=== PATIENT | male | born 1960 | race Caucasian/White ===

== ENCOUNTER 2024-02-03 03:49 | Inpatient (IN) | payer OTHER ==
[~2024-02-03] VITALS: Ht 177.8 cm; Wt 90.3 kg
[2024-02-03 04:11] VITALS: BP_SYST 124; PULSE 97; RESP 35; TEMP 98.9; O2SAT 96
[2024-02-03] MEDS: NS 1000 ML IV.SOLN IV ONE (04:30)
[2024-02-03 04:44] LABS: BASOPHILS % (AUTO) 0.1 % (0.0-2.0); EOSINOPHILS % (AUTO) 0.1 % (0.0-4.0); HEMATOCRIT 35.8 % (36-54); HEMOGLOBIN 11.9 g/dL (14.0-18.0); LYMPHOCYTES # (AUTO) 1.1 K/uL (1.0-5.5); LYMPHOCYTES % (AUTO) 7.1 % (20.5-51.5); MEAN CORPUSCULAR HEMOGLOBIN 28 pg (27-31); MEAN CORPUSCULAR HGB CONC 33 % (32-36); MEAN CORPUSCULAR VOLUME 85 fL (79.0-98.0); MONOCYTES # (AUTO) 0.9 K/uL (0.0-1.0); MONOCYTES % (AUTO) 5.6 % (1.7-9.3); NEUTROPHILS % (AUTO) 87.1 % (40.0-70.0); PLATELET COUNT (AUTO) 250 K/uL (130-430); RED BLOOD CELL COUNT(AUTO) 4.23 MIL/uL (4.2-6.2); RED CELL DISTRIBUTION WIDTH 14.6 % (9.0-15.0)
[2024-02-03 04:53] LABS: INR 1.1 (0.80-1.20); PROTHROMBIN TIME 10.9 SECS (9.5-12.5)
[2024-02-03] MEDS ORDERED: CLOP75TA32 PO (04:53)
[2024-02-03] MEDS ORDERED: FER300L PO (04:53)
[2024-02-03] MEDS ORDERED: ESCI10TA PO (04:53)
[2024-02-03] MEDS ORDERED: PANT20TA2 PO (04:53)
[2024-02-03] MEDS ORDERED: LACT10SO7 PO (04:53)
[2024-02-03] MEDS ORDERED: TAMS-11 PO (04:53)
[2024-02-03] MEDS ORDERED: LIP40 PO (04:53)
[2024-02-03] MEDS ORDERED: OXYIR5 PO (04:53)
[2024-02-03] MEDS ORDERED: BUPR1PAT2 TP (04:53)
[2024-02-03] MEDS ORDERED: OXYB-31 PO (04:53)
[2024-02-03] MEDS ORDERED: ASCO500T20 PO (04:53)
[2024-02-03] MEDS ORDERED: BACL20TA PO (04:53)
[2024-02-03] MEDS ORDERED: DOCU250C14 PO (04:53)
[2024-02-03] MEDS ORDERED: VITD2000 PO (04:53)
[2024-02-03] MEDS ORDERED: NALO4SPR NS (04:53)
[2024-02-03] MEDS ORDERED: [UNRECOGNIZED DRUG - CODE] SUBCUT (04:53)
[2024-02-03] MEDS ORDERED: IPRA4AER INH (04:53)
[2024-02-03] MEDS ORDERED: MULT-1117 PO (04:53)
[2024-02-03] MEDS ORDERED: ACET325T53 PO (04:53)
[2024-02-03] MEDS ORDERED: GABA-529 PO (04:53)
[2024-02-03] MEDS ORDERED: METO-290 PO (04:53)
[2024-02-03] MEDS ORDERED: FURO-150 PO (04:53)
[2024-02-03 05:13] LABS: ALANINE AMINOTRANSFERASE 47 U/L (12-78); ALBUMIN 3.8 g/dL (3.4-4.8); ANION GAP 18 (5-15); ASPARTATE AMINOTRANSFERASE 33 U/L (10-37); BILIRUBIN,DIRECT 0.2 mg/dL (0.0-0.3); CALCIUM 9.9 mg/dL (8.4-11.0); CARBON DIOXIDE 18 mmol/L (23-29); CHLORIDE 102 mmol/L (98-107); CREATININE 1.01 mg/dL (0.55-1.30); GFR AFRICAN AMERICAN 97 mL/min (>90); GLUCOSE 246 mg/dL (74-106); POTASSIUM 4.9 mmol/L (3.5-5.1); SODIUM SERUM 138 mmol/L (136-145); TOTAL BILIRUBIN 0.5 mg/dL (0.0-1.0); TOTAL PROTEIN, SERUM 9.9 g/dL (6.4-8.3); UREA NITROGEN, BLOOD 40 mg/dL (8-21)
[2024-02-03 05:14] LABS: GFR NON AFRICAN-AMERICAN 80 mL/min (>90)
[2024-02-03] MEDS ORDERED: ONDANSETRON HCL 4 MG/2 ML VIAL ONE (05:26)
[2024-02-03] MEDS: ONDANSETRON HCL 4 MG/2 ML VIAL IVP ONE (05:28)
[2024-02-03] MEDS ORDERED: PIPERACILLIN/TAZO 4.5GM/DEX-IS 100 ML IV SCH (07:15)
[2024-02-03] MEDS: D5/0.45 NS 1,000 ML IV SCH (08:30)
[2024-02-03] MEDS ORDERED: PIPERACILLIN/TAZOBACTAM 4.5 GM/VIAL (ZOSYN) IV ONE (08:36)
[2024-02-03] MEDS: PIPERACILLIN/TAZO 4.5 GM in D5W 100 ML IV ONE (08:48)
[2024-02-03] MEDS: VANCOMYCIN HCL 1,000 MG in NS 250 ML IV SCH (11:38)
[2024-02-03 11:40] LABS: BILIRUBIN,URINE NEGATIVE (NEGATIVE); BLOOD, URINE 1+ (NEGATIVE); CLARITY/URINE CLOUDY (CLEAR); COLOR,URINE YELLOW (YELLOW); GLUCOSE,URINE NEGATIVE (NEGATIVE); KETONES,URINE TRACE (NEGATIVE); LEUKOCYTE ESTERASE ,URINE 3+ (NEGATIVE); NITRITE, URINE NEGATIVE (NEGATIVE); PROTEIN URINE TRACE (NEGATIVE); UROBILINOGEN,URINE 0.2 (0.2-1.0)
[2024-02-03 11:46] LABS: BACTERIA,URINE MANY /HPF (None Seen); WBC,URINE 20-50 /HPF (0-3)
[2024-02-03 11:47] LABS: MUCUS,URINE 1+ /LPF (None Seen)
[2024-02-03] MEDS ORDERED: D5W 1,000 ML IV PRN (12:00)
[2024-02-03] MEDS ORDERED: GLUCOSE (DEXTROSE) ORAL GEL -Adults PO PRN (12:00)
[2024-02-03] MEDS ORDERED: DEXTROSE 50% JECT 50 ML DISP.SYRIN IVP PRN (12:00)
[2024-02-03] MEDS: PANTOPRAZOLE SODIUM 80 MG in NS 100 ML IVP ONE (13:00)
[2024-02-03] MEDS ORDERED: PIPERACILLIN/TAZO 4.5 GM in D5W 100 ML IV SCH (14:00)
[2024-02-03] MEDS: PANTOPRAZOLE SODIUM 40 MG in NS 50 ML IV SCH (14:00)
[2024-02-03] MEDS ORDERED: DIATR MEGLU/DIATRIZ SOD 30 ML SOLUTION PO ONE (14:36)
[2024-02-03] MEDS ORDERED: PANTOPRAZOLE SODIUM 40 MG/VIAL (PROTONIX) ONE (15:40)
[2024-02-03] MEDS: PIPERACILLIN/TAZO 3.375 GM in D5W 50 ML IV SCH (21:35)
[2024-02-03 22:35] VITALS: BP_SYST 118; PULSE 63; RESP 18; TEMP 97; O2SAT 96
[2024-02-03 22:37] VITALS: BP_SYST 118; PULSE 62; RESP 18; TEMP 97.2
[2024-02-03 22:45] VITALS: O2SAT 96
[2024-02-03 23:58] VITALS: PULSE 62; O2SAT 98
[2024-02-04 00:07] VITALS: BP_SYST 124; PULSE 58; RESP 16; TEMP 98.1; O2SAT 97
[2024-02-04] MEDS: VANCOMYCIN HCL 1000 MG/VIAL IV ONE (01:09)
[2024-02-04 05:34] LABS: BASOPHILS % (AUTO) 0.1 % (0.0-2.0); EOSINOPHILS % (AUTO) 0.2 % (0.0-4.0); HEMATOCRIT 27.7 % (36-54); HEMOGLOBIN 9.1 g/dL (14.0-18.0); LYMPHOCYTES # (AUTO) 1.7 K/uL (1.0-5.5); LYMPHOCYTES % (AUTO) 13.2 % (20.5-51.5); MEAN CORPUSCULAR HEMOGLOBIN 28 pg (27-31); MEAN CORPUSCULAR HGB CONC 33 % (32-36); MEAN CORPUSCULAR VOLUME 85 fL (79.0-98.0); MONOCYTES # (AUTO) 0.8 K/uL (0.0-1.0); MONOCYTES % (AUTO) 6.6 % (1.7-9.3); NEUTROPHILS # (AUTO) 10.2 K/uL (1.8-7.7); NEUTROPHILS % (AUTO) 79.9 % (40.0-70.0); PLATELET COUNT (AUTO) 175 K/uL (130-430); RED BLOOD CELL COUNT(AUTO) 3.26 MIL/uL (4.2-6.2); RED CELL DISTRIBUTION WIDTH 14.4 % (9.0-15.0); WHITE BLOOD COUNT (AUTO) 12.7 K/uL (4.8-10.8)
[2024-02-04 05:41] LABS: INR 1.1 (0.80-1.20); PROTHROMBIN TIME 11.7 SECS (9.5-12.5)
[2024-02-04 06:08] LABS: CREATININE 0.83 mg/dL (0.55-1.30); PHOSPHORUS 3.3 mg/dL (2.7-4.5); POTASSIUM 3.7 mmol/L (3.5-5.1); THYROID STIMULATING HORMONE 1.48 uIu/mL (0.34-4.82); TOTAL BILIRUBIN 0.5 mg/dL (0.0-1.0); TOTAL PROTEIN, SERUM 8.1 g/dL (6.4-8.3)
[2024-02-04] MEDS: PANTOPRAZOLE SODIUM 40 MG/VIAL (PROTONIX) ONE (06:12)
[2024-02-04 08:00] VITALS: BP_SYST 121; PULSE 57; RESP 16; TEMP 97.6; O2SAT 97
[2024-02-04] MEDS: fentaNYL CITRATE/PF 100 MCG/2 ML AMP ONE (09:39)
[2024-02-04] MEDS: MIDAZOLAM HCL 5 MG/5 ML VIAL ONE (09:39)
[2024-02-04 11:40] VITALS: BP_SYST 116; PULSE 51; RESP 17; TEMP 97.1; O2SAT 96
[2024-02-04 16:40] VITALS: BP_SYST 119; PULSE 56; RESP 16; TEMP 98; O2SAT 95
[2024-02-04] MEDS: MUPIROCIN 1 GM OIN.PF.APP NS ONE (17:14)
[2024-02-04] MEDS: OXYCODONE/ACETAMINOPHEN 5-325 TABLET PO ONE (19:30)
[2024-02-04 20:00] VITALS: BP_SYST 133; PULSE 62; RESP 18; TEMP 97.7; O2SAT 98
[2024-02-04] MEDS: PANTOPRAZOLE SODIUM 40 MG/VIAL (PROTONIX) IVP SCH (21:03)
[2024-02-04] MEDS: MUPIROCIN 1 GM OIN.PF.APP NS SCH (21:15)
[2024-02-05] VITALS: BP_SYST 132; PULSE 58; RESP 17; TEMP 97.8; O2SAT 97
[2024-02-05 04:01] LABS: BASOPHILS % (AUTO) 0.2 % (0.0-2.0); EOSINOPHILS # (AUTO) 0.2 K/uL (0.0-0.4); HEMATOCRIT 27.4 % (36-54); HEMOGLOBIN 9.2 g/dL (14.0-18.0); LYMPHOCYTES # (AUTO) 2.5 K/uL (1.0-5.5); LYMPHOCYTES % (AUTO) 26.2 % (20.5-51.5); MEAN CORPUSCULAR HEMOGLOBIN 28 pg (27-31); MEAN CORPUSCULAR HGB CONC 34 % (32-36); MEAN CORPUSCULAR VOLUME 85 fL (79.0-98.0); MONOCYTES # (AUTO) 0.8 K/uL (0.0-1.0); MONOCYTES % (AUTO) 8.2 % (1.7-9.3); NEUTROPHILS # (AUTO) 6.2 K/uL (1.8-7.7); NEUTROPHILS % (AUTO) 63.4 % (40.0-70.0); PLATELET COUNT (AUTO) 182 K/uL (130-430); RED BLOOD CELL COUNT(AUTO) 3.24 MIL/uL (4.2-6.2); RED CELL DISTRIBUTION WIDTH 14.8 % (9.0-15.0); WHITE BLOOD COUNT (AUTO) 9.7 K/uL (4.8-10.8)
[2024-02-05 04:21] LABS: ALBUMIN 2.9 g/dL (3.4-4.8); CALCIUM 8.9 mg/dL (8.4-11.0); CREATININE 0.6 mg/dL (0.55-1.30); POTASSIUM 3.3 mmol/L (3.5-5.1); TOTAL BILIRUBIN 0.4 mg/dL (0.0-1.0); TOTAL PROTEIN, SERUM 7.9 g/dL (6.4-8.3)
[2024-02-05 07:00] VITALS: O2SAT 97
[2024-02-05 08:00] VITALS: BP_SYST 131; PULSE 63; RESP 18; TEMP 96.7; O2SAT 99
[2024-02-05] MEDS ORDERED: GASTROGRAFIN 120 ML ONE (10:11)
[2024-02-05 11:02] VITALS: BP_SYST 139; PULSE 71; RESP 17; TEMP 98.5; O2SAT 97
[2024-02-05 16:25] VITALS: BP_SYST 149; PULSE 69; RESP 16; TEMP 97.7; O2SAT 97
[2024-02-05] MEDS: POTASSIUM CHLORIDE 40 MEQ in D5W 250 ML IV ONE (17:58)
[2024-02-05 20:00] VITALS: BP_SYST 140; PULSE 65; RESP 20; TEMP 98.2; O2SAT 98
[2024-02-06 00:49] VITALS: BP_SYST 138; PULSE 63; RESP 16; TEMP 98.2; O2SAT 97
[2024-02-06] MEDS: VANCOMYCIN HCL 1,000 MG in NS 250 ML IV SCH (02:12)
[2024-02-06 04:41] LABS: BASOPHILS % (AUTO) 0.3 % (0.0-2.0); EOSINOPHILS # (AUTO) 0.2 K/uL (0.0-0.4); EOSINOPHILS % (AUTO) 2.2 % (0.0-4.0); HEMOGLOBIN 8.6 g/dL (14.0-18.0); LYMPHOCYTES # (AUTO) 3.2 K/uL (1.0-5.5); LYMPHOCYTES % (AUTO) 30.7 % (20.5-51.5); MEAN CORPUSCULAR HEMOGLOBIN 28 pg (27-31); MEAN CORPUSCULAR HGB CONC 33 % (32-36); MEAN CORPUSCULAR VOLUME 85 fL (79.0-98.0); MONOCYTES # (AUTO) 1.2 K/uL (0.0-1.0); MONOCYTES % (AUTO) 11.3 % (1.7-9.3); NEUTROPHILS # (AUTO) 5.8 K/uL (1.8-7.7); NEUTROPHILS % (AUTO) 55.5 % (40.0-70.0); PLATELET COUNT (AUTO) 173 K/uL (130-430); RED BLOOD CELL COUNT(AUTO) 3.05 MIL/uL (4.2-6.2); RED CELL DISTRIBUTION WIDTH 14.3 % (9.0-15.0); WHITE BLOOD COUNT (AUTO) 10.4 K/uL (4.8-10.8)
[2024-02-06 05:21] LABS: CALCIUM 8.3 mg/dL (8.4-11.0); CREATININE 0.47 mg/dL (0.55-1.30); POTASSIUM 4.2 mmol/L (3.5-5.1)
[2024-02-06 08:12] VITALS: BP_SYST 131; PULSE 64; RESP 18; TEMP 97.3; O2SAT 97
[2024-02-06] MEDS: OXYCODONE/ACETAMINOPHEN 5-325 TABLET PO PRN (08:21)
[2024-02-06 08:30] VITALS: O2SAT 97
[2024-02-06 11:02] VITALS: BP_SYST 122; PULSE 56; RESP 14; TEMP 99.2; O2SAT 99
[2024-02-06 13:21] LABS: TOTAL IRON BIND. CAPACITY 174 ug/dL (250-450)
[2024-02-06 16:08] VITALS: BP_SYST 124; PULSE 61; RESP 14; TEMP 99; O2SAT 99
[2024-02-06 20:00] VITALS: BP_SYST 147; PULSE 70; RESP 18; TEMP 98.3; O2SAT 96
[2024-02-07] VITALS (8 sets, daily range): BP systolic 139–170; PULSE 61–89; RESP 17–20; TEMP 97.1–97.9; O2SAT 96–98
[2024-02-07] MEDS ORDERED: PANT20TA2 PO (12:11)
[2024-02-07] MEDS ORDERED: ERTA1VIA3 INJ (12:16)
[2024-02-07] MEDS: cloNIDine HCL 0.2 MG TABLET PO PRN (20:25)
[2024-02-08] VITALS (9 sets, daily range): BP systolic 107–176; PULSE 54–70; RESP 16–18; TEMP 96.3–97.5; O2SAT 94–100
[2024-02-08] MEDS: MUPIROCIN 2% TOPICAL OINTMENT 22 GM NS SCH (09:44)
[2024-02-08] MEDS: amLODIPine BESYLATE 10 MG TABLET PO ONE (14:13)
[2024-02-09] MEDS ORDERED: amLODIPine BESYLATE 10 MG TABLET PO SCH (09:00)
== END 2024-02-08 21:21 | DRG 377 ==
LOC: SED 03:49 → STU 08:21
PROVIDERS: ADMIT Internal Medicine; ATTEND Internal Medicine
PROC: 0DJ08ZZ Inspection of Upper Intestinal Tract, Via Natural or Artificial Opening Endoscopic (ICD-10-PCS; principal; 2024-02-04 14:00)
DX: K29.71 Gastritis, unspecified, with bleeding (principal); G82.50 Quadriplegia, unspecified; J96.10 Chronic respiratory failure, unspecified whether with hypoxia or hypercapnia; K80.01 Calculus of gallbladder with acute cholecystitis with obstruction; K57.92 Diverticulitis of intestine, part unspecified, without perforation or abscess without bleeding; I24.89 Other forms of acute ischemic heart disease; E78.5 Hyperlipidemia, unspecified; I10 Essential (primary) hypertension; F32.A Depression, unspecified; I25.10 Atherosclerotic heart disease of native coronary artery without angina pectoris; K20.91 Esophagitis, unspecified with bleeding; E11.9 Type 2 diabetes mellitus without complications; Z93.3 Colostomy status; Z93.0 Tracheostomy status; Z87.820 Personal history of traumatic brain injury; Z86.74 Personal history of sudden cardiac arrest; Z79.899 Other long term (current) drug therapy
CPT/HCPCS: 36415; 43239; 71045; 74018; 74250; 78226; 80048; 80053; 80061; 80076; 80202; 81000; 81001; 81015; 82271; 83037; 83540; 83550; 83605; 83735; 83880; 84100; 84443; 84484; 85025; 85610; 85730; 87040; 87081; 87086; 87186; 93005; 93306; 94070; 94760; 99285; A9537; C9113; G0378; J2250; J2405; J2543; J3010; J3370; J3480; J7050; J7060; Q9963; Q9964

== ENCOUNTER 2024-05-17 22:14 | Inpatient (IN) | payer OTHER ==
[~2024-05-17] VITALS: Ht 182.9 cm; Wt 95.0 kg
[~2024-05-17 22:14] MED LIST: ACET325T53 PO; ASCO500T20 PO; BACL20TA PO; BUPR1PAT2 TP; CLOP75TA32 PO; DOCU250C14 PO; ERTA1VIA3 INJ; ESCI10TA PO; FER300L PO; FURO-150 PO; GABA-529 PO; IPRA4AER INH; LACT10SO7 PO; LIP40 PO; METO-290 PO; MULT-1117 PO; NALO4SPR NS; OXYB-31 PO; OXYIR5 PO; PANT20TA2 PO; TAMS-11 PO; VITD2000 PO; [UNRECOGNIZED DRUG - CODE] SUBCUT
[2024-05-17 22:30] VITALS: BP_SYST 118; PULSE 91; RESP 18; TEMP 99.7; O2SAT 95
[2024-05-17 23:10] LABS: BILIRUBIN,URINE NEGATIVE (NEGATIVE); BLOOD, URINE 1+ (NEGATIVE); CLARITY/URINE CLEAR (CLEAR); COLOR,URINE YELLOW (YELLOW); GLUCOSE,URINE NEGATIVE (NEGATIVE); KETONES,URINE NEGATIVE (NEGATIVE); LEUKOCYTE ESTERASE ,URINE NEGATIVE (NEGATIVE); NITRITE, URINE POSITIVE (NEGATIVE); PROTEIN URINE 1+ (NEGATIVE); UROBILINOGEN,URINE 0.2 (0.2-1.0)
[2024-05-17 23:28] LABS: INR 1.1 (0.80-1.20); PROTHROMBIN TIME 11.4 SECS (9.5-12.5)
[2024-05-17 23:29] LABS: BACTERIA,URINE FEW /HPF (None Seen); MUCUS,URINE 1+ /LPF (None Seen); RBC,URINE 0-3 /HPF (0-3); WBC,URINE 0-3 /HPF (0-3)
[2024-05-17] MEDS ORDERED: cefTRIAXone 1 GM VIAL ONE (23:36)
[2024-05-17] MEDS: cefTRIAXone 1 GM in D5W 50 ML IV ONE (23:36)
[2024-05-17] MEDS: NACL 0.9% 1,000 ML IV ONE (23:37)
[2024-05-17 23:40] LABS: BASOPHILS % (AUTO) 0.2 % (0.0-2.0); HEMATOCRIT 23.6 % (36-54); LYMPHOCYTES # (AUTO) 0.9 K/uL (1.0-5.5); LYMPHOCYTES % (AUTO) 5.5 % (20.5-51.5); MEAN CORPUSCULAR HEMOGLOBIN 28 pg (27-31); MEAN CORPUSCULAR HGB CONC 34 % (32-36); MEAN CORPUSCULAR VOLUME 82 fL (79.0-98.0); MONOCYTES # (AUTO) 0.9 K/uL (0.0-1.0); MONOCYTES % (AUTO) 5.8 % (1.7-9.3); NEUTROPHILS # (AUTO) 14.1 K/uL (1.8-7.7); NEUTROPHILS % (AUTO) 88.5 % (40.0-70.0); PLATELET COUNT (AUTO) 172 K/uL (130-430); RED BLOOD CELL COUNT(AUTO) 2.89 MIL/uL (4.2-6.2); RED CELL DISTRIBUTION WIDTH 13.9 % (9.0-15.0); WHITE BLOOD COUNT (AUTO) 15.9 K/uL (4.8-10.8)
[2024-05-18] VITALS (10 sets, daily range): BP systolic 101–120; PULSE 65–71; RESP 16–20; TEMP 97.7–99.2; O2SAT 96–99
[2024-05-18 00:03] LABS: ANION GAP 11 (5-15); CALCIUM 8.6 mg/dL (8.4-11.0); CARBON DIOXIDE 23 mmol/L (23-29); CHLORIDE 95 mmol/L (98-107); CREATINE KINASE, TOTAL 194 U/L (39-308); CREATININE 0.81 mg/dL (0.55-1.30); GFR AFRICAN AMERICAN 125 mL/min (>90); GLUCOSE 256 mg/dL (74-106); POTASSIUM 3.7 mmol/L (3.5-5.1); SODIUM SERUM 129 mmol/L (136-145); UREA NITROGEN, BLOOD 12 mg/dL (8-21)
[2024-05-18 00:06] LABS: GFR NON AFRICAN-AMERICAN 103 mL/min (>90)
[2024-05-18] MEDS: ASPIRIN 325 MG TABLET PO ONE (00:25)
[2024-05-18] MEDS: ENOXAPARIN SODIUM 80 MG/0.8 ML SYRINGE SUBCUT ONE (00:32)
[2024-05-18 00:48] LABS: INFLUENZA TYPE A Negative (NEGATIVE); INFLUENZA TYPE B NEGATIVE (NEGATIVE)
[2024-05-18] MEDS ORDERED: IPRATROPIUM/ALBUTEROL SULFATE 3 ML AMPUL.NEB (DUONEB) INH PRN (01:00)
[2024-05-18] MEDS ORDERED: ZINC220T4 PO (01:21)
[2024-05-18] MEDS ORDERED: GUAI-723 PO (01:21)
[2024-05-18] MEDS ORDERED: GUAI100S14 PO (01:21)
[2024-05-18] MEDS ORDERED: ONDA-8 TL (01:21)
[2024-05-18] MEDS ORDERED: LEVO750T64 PO (01:21)
[2024-05-18] MEDS ORDERED: SSNOVOLOG SUBCUT (01:21)
[2024-05-18] MEDS ORDERED: LORazepam 2 MG/ML VIAL IVP PRN (14:15)
[2024-05-18] MEDS ORDERED: oxyCODONE HCL 5 MG TABLET PO SCH (14:15)
[2024-05-18] MEDS ORDERED: NON-FORMULARY MEDICATION (Buprenorphine (Butrans) 1 PATCH) TP SCH (14:15)
[2024-05-18] MEDS ORDERED: guaiFENesin 200 MG/10 ML UDC PO SCH (14:15)
[2024-05-18] MEDS ORDERED: IPRATROPIUM/ALBUTEROL SULFATE 120 PUFFS/4 GM INH INH SCH (14:15)
[2024-05-18] MEDS ORDERED: NON-FORMULARY MEDICATION (Lactulose 20 GM) PO SCH (14:15)
[2024-05-18] MEDS ORDERED: ONDANSETRON HCL 4 MG/2 ML VIAL IVP PRN (14:15)
[2024-05-18] MEDS ORDERED: ESCITALOPRAM OXALATE 10 MG TABLET PO SCH (14:15)
[2024-05-18] MEDS ORDERED: guaiFENesin/DEXTROMETHORPHAN 1 EACH TAB.ER.12H PO PRN (14:15)
[2024-05-18] MEDS: NACL 0.9% 1,000 ML IV SCH (14:44)
[2024-05-18] MEDS: PIPERACILLIN/TAZO 3.375 GM in NS 50 ML IV ONE (14:45)
[2024-05-18] MEDS: CLOPIDOGREL BISULFATE 75 MG TABLET PO ONE (14:59)
[2024-05-18] MEDS: ASCORBIC ACID 500 MG TABLET PO ONE (14:59)
[2024-05-18] MEDS: CHOLECALCIFEROL (VITAMIN D3) 2,000 UNIT TABLET PO ONE (14:59)
[2024-05-18] MEDS: TAMSULOSIN HCL 0.4 MG CAP PO ONE (14:59)
[2024-05-18] MEDS ORDERED: IPRATROPIUM BROM 0.5 MG/2.5 ML VIAL.NEB (ATROVENT) INH SCH (15:00)
[2024-05-18] MEDS: BACLOFEN 10 MG TABLET PO SCH (15:00)
[2024-05-18] MEDS ORDERED: METOCLOPRAMIDE HCL 10 MG TABLET PO SCH (15:00)
[2024-05-18] MEDS ORDERED: IPRATROPIUM BROM 0.5 MG/2.5 ML VIAL.NEB (ATROVENT) INH PRN (15:00)
[2024-05-18] MEDS ORDERED: ALBUTEROL SULFATE 0.083% 2.5 MG/3 ML VIAL.NEB INH PRN (15:00)
[2024-05-18] MEDS: GABAPENTIN 100 MG CAPSULE PO SCH (15:00)
[2024-05-18] MEDS ORDERED: ALBUTEROL SULFATE 0.083% 2.5 MG/3 ML VIAL.NEB INH SCH (15:00)
[2024-05-18] MEDS: IPRATROPIUM/ALBUTEROL SULFATE 3 ML AMPUL.NEB (DUONEB) INH SCH (15:58)
[2024-05-18] MEDS: INSULIN REGULAR, HUMAN 100 UNITS/ML, 3 ML VIAL (humuLIN R) SUBCUT PRN (18:27)
[2024-05-18] MEDS ORDERED: [UNRECOGNIZED DRUG - OTHER] SUBCUT SCH (21:00)
[2024-05-18] MEDS: cefTRIAXone 1 GM in D5W 50 ML IV SCH (22:07)
[2024-05-18] MEDS: oxyBUTYnin chloride 5 MG TABLET PO SCH (22:08)
[2024-05-18] MEDS: DOCUSATE SODIUM 250 MG CAPSULE PO SCH (22:08)
[2024-05-18] MEDS: ATORVASTATIN 20 MG TABLET PO SCH (22:08)
[2024-05-18] MEDS: FUROSEMIDE 20 MG TABLET PO SCH (22:08)
[2024-05-18] MEDS: FERROUS SULFATE 300 MG/5 ML UDC PO SCH (22:09)
[2024-05-19] VITALS (11 sets, daily range): BP systolic 110–128; PULSE 71–74; RESP 18–22; TEMP 98–99.3; O2SAT 97–100
[2024-05-19] MEDS: HYDROcodone/ACETAMIN 10-325 MG TAB PO PRN (03:22)
[2024-05-19 07:35] LABS: BASOPHILS % (AUTO) 0.1 % (0.0-2.0); EOSINOPHILS # (AUTO) 0.1 K/uL (0.0-0.4); EOSINOPHILS % (AUTO) 0.7 % (0.0-4.0); HEMATOCRIT 24.9 % (36-54); HEMOGLOBIN 8.1 g/dL (14.0-18.0); LYMPHOCYTES # (AUTO) 1.5 K/uL (1.0-5.5); LYMPHOCYTES % (AUTO) 11.2 % (20.5-51.5); MEAN CORPUSCULAR HEMOGLOBIN 27 pg (27-31); MEAN CORPUSCULAR HGB CONC 33 % (32-36); MEAN CORPUSCULAR VOLUME 83 fL (79.0-98.0); MONOCYTES # (AUTO) 0.9 K/uL (0.0-1.0); MONOCYTES % (AUTO) 6.3 % (1.7-9.3); NEUTROPHILS # (AUTO) 11.3 K/uL (1.8-7.7); NEUTROPHILS % (AUTO) 81.7 % (40.0-70.0); PLATELET COUNT (AUTO) 196 K/uL (130-430); RED CELL DISTRIBUTION WIDTH 14.4 % (9.0-15.0); WHITE BLOOD COUNT (AUTO) 13.8 K/uL (4.8-10.8)
[2024-05-19 07:59] LABS: ALBUMIN 2.2 g/dL (3.4-4.8); CALCIUM 8.1 mg/dL (8.4-11.0); CREATININE 0.5 mg/dL (0.55-1.30); POTASSIUM 3.4 mmol/L (3.5-5.1); TOTAL BILIRUBIN 0.6 mg/dL (0.0-1.0); TOTAL PROTEIN, SERUM 6.7 g/dL (6.4-8.3)
[2024-05-19] MEDS: CLOPIDOGREL BISULFATE 75 MG TABLET PO SCH (08:46)
[2024-05-19] MEDS: PANTOPRAZOLE SODIUM 40 MG TAB PO SCH (08:46)
[2024-05-19] MEDS: MULTIVITAMINS TAB 1 TABLET PO SCH (08:46)
[2024-05-19] MEDS: CITALOPRAM HYDROBROMIDE 20 MG TABLET PO SCH (08:47)
[2024-05-19] MEDS: TAMSULOSIN HCL 0.4 MG CAP PO SCH (08:47)
[2024-05-19] MEDS: ASCORBIC ACID 500 MG TABLET PO SCH (08:47)
[2024-05-19] MEDS: LACTULOSE 20 GM/30 ML UDC PO SCH (08:47)
[2024-05-19] MEDS: ENOXAPARIN SODIUM 40 MG/0.4 ML SYRINGE SUBCUT SCH (08:48)
[2024-05-19] MEDS: CHOLECALCIFEROL (VITAMIN D3) 2,000 UNIT TABLET PO SCH (08:48)
[2024-05-19] MEDS: ACETAMINOPHEN 325 MG TABLET PO PRN (08:50)
[2024-05-19] MEDS ORDERED: *LOVENOX 1MG/KG Q12H/PHARMACY XX PRN (11:15)
[2024-05-19] MEDS: ASPIRIN 81 MG TAB.CHEW PO ONE (12:05)
[2024-05-19] MEDS: ENOXAPARIN SODIUM 100 MG/ML SYRINGE SUBCUT ONE (12:05)
[2024-05-19] MEDS: ENOXAPARIN SODIUM 100 MG/ML SYRINGE SUBCUT SCH (21:46)
[2024-05-20] VITALS (12 sets, daily range): BP systolic 105–135; PULSE 68–103; RESP 15–20; TEMP 97.8–99; O2SAT 95–99
[2024-05-20 07:16] LABS: BASOPHILS % (AUTO) 0.2 % (0.0-2.0); EOSINOPHILS % (AUTO) 0.2 % (0.0-4.0); HEMATOCRIT 24.3 % (36-54); HEMOGLOBIN 7.9 g/dL (14.0-18.0); LYMPHOCYTES # (AUTO) 1.3 K/uL (1.0-5.5); LYMPHOCYTES % (AUTO) 9.5 % (20.5-51.5); MEAN CORPUSCULAR HEMOGLOBIN 27 pg (27-31); MEAN CORPUSCULAR HGB CONC 33 % (32-36); MEAN CORPUSCULAR VOLUME 83 fL (79.0-98.0); MONOCYTES % (AUTO) 7.5 % (1.7-9.3); NEUTROPHILS # (AUTO) 11.6 K/uL (1.8-7.7); NEUTROPHILS % (AUTO) 82.6 % (40.0-70.0); PLATELET COUNT (AUTO) 211 K/uL (130-430); RED BLOOD CELL COUNT(AUTO) 2.93 MIL/uL (4.2-6.2); RED CELL DISTRIBUTION WIDTH 14.4 % (9.0-15.0)
[2024-05-20 07:49] LABS: ERYTHROCYTE SEDIMENTATION RATE 76 MM/HR (0-15)
[2024-05-20 07:58] LABS: CALCIUM 8.5 mg/dL (8.4-11.0); CREATININE 0.56 mg/dL (0.55-1.30)
[2024-05-20 08:06] LABS: POTASSIUM 2.8 mmol/L (3.5-5.1)
[2024-05-20] MEDS: POTASSIUM CHLORIDE 40 MEQ in NS 250 ML IV ONE (09:27)
[2024-05-20] MEDS: ASPIRIN 81 MG TAB.CHEW PO SCH (09:52)
[2024-05-20] MEDS: ATORVASTATIN 20 MG TABLET PO SCH (09:54)
[2024-05-20] MEDS: POTASSIUM CHLORIDE 20 MEQ/PKT PACKET GT ONE (09:55)
[2024-05-20] MEDS: METOPROLOL SUCCINATE 25 MG TAB.SR.24H (TOPROL XL) PO ONE (12:22)
[2024-05-20] MEDS: MUPIROCIN 2% TOPICAL OINTMENT 22 GM TP SCH (22:07)
[2024-05-21] VITALS (13 sets, daily range): BP systolic 97–114; PULSE 60–80; RESP 20–25; TEMP 97.4–98.2; O2SAT 95–99
[2024-05-21 07:10] LABS: BASOPHILS % (AUTO) 0.2 % (0.0-2.0); HEMATOCRIT 24.5 % (36-54); LYMPHOCYTES # (AUTO) 1.1 K/uL (1.0-5.5); LYMPHOCYTES % (AUTO) 6.4 % (20.5-51.5); MEAN CORPUSCULAR HEMOGLOBIN 27 pg (27-31); MEAN CORPUSCULAR HGB CONC 32 % (32-36); MEAN CORPUSCULAR VOLUME 83 fL (79.0-98.0); MONOCYTES # (AUTO) 1.1 K/uL (0.0-1.0); MONOCYTES % (AUTO) 6.3 % (1.7-9.3); NEUTROPHILS # (AUTO) 15.2 K/uL (1.8-7.7); NEUTROPHILS % (AUTO) 87.1 % (40.0-70.0); PLATELET COUNT (AUTO) 253 K/uL (130-430); RED BLOOD CELL COUNT(AUTO) 2.96 MIL/uL (4.2-6.2); RED CELL DISTRIBUTION WIDTH 14.2 % (9.0-15.0); WHITE BLOOD COUNT (AUTO) 17.5 K/uL (4.8-10.8)
[2024-05-21 07:33] LABS: ERYTHROCYTE SEDIMENTATION RATE 79 MM/HR (0-15)
[2024-05-21 08:11] LABS: ALBUMIN 2.1 g/dL (3.4-4.8); CALCIUM 8.6 mg/dL (8.4-11.0); CREATININE 0.58 mg/dL (0.55-1.30); POTASSIUM 3.2 mmol/L (3.5-5.1); TOTAL BILIRUBIN 0.6 mg/dL (0.0-1.0); TOTAL PROTEIN, SERUM 7.3 g/dL (6.4-8.3)
[2024-05-21] MEDS: HYDROcodone/ACETAMIN 5-325 MG TAB (NORCO/ VICODIN) PO PRN (10:09)
[2024-05-21] MEDS: METOPROLOL SUCCINATE 25 MG TAB.SR.24H (TOPROL XL) PO SCH (10:16)
[2024-05-21] MEDS: LOSARTAN POTASSIUM 25 MG TABLET PO SCH (10:16)
[2024-05-21] MEDS: POTASSIUM CHLORIDE 20 MEQ TABLET.ER PO ONE (12:06)
[2024-05-21] MEDS: NACL 0.9% 1,000 ML IV ONE (20:36)
[2024-05-22] VITALS (13 sets, daily range): BP systolic 101–134; PULSE 55–76; RESP 18–21; TEMP 97.5–98.4; O2SAT 76–100
[2024-05-22 05:07] LABS: ERYTHROCYTE SEDIMENTATION RATE 82 MM/HR (0-15)
[2024-05-22 05:17] LABS: BASOPHILS % (AUTO) 0.1 % (0.0-2.0); EOSINOPHILS # (AUTO) 0.1 K/uL (0.0-0.4); EOSINOPHILS % (AUTO) 0.9 % (0.0-4.0); HEMATOCRIT 22.8 % (36-54); HEMOGLOBIN 7.6 g/dL (14.0-18.0); LYMPHOCYTES # (AUTO) 1.9 K/uL (1.0-5.5); MEAN CORPUSCULAR HEMOGLOBIN 28 pg (27-31); MEAN CORPUSCULAR HGB CONC 33 % (32-36); MEAN CORPUSCULAR VOLUME 83 fL (79.0-98.0); MONOCYTES # (AUTO) 0.9 K/uL (0.0-1.0); MONOCYTES % (AUTO) 7.2 % (1.7-9.3); NEUTROPHILS # (AUTO) 9.5 K/uL (1.8-7.7); NEUTROPHILS % (AUTO) 76.8 % (40.0-70.0); PLATELET COUNT (AUTO) 262 K/uL (130-430); RED BLOOD CELL COUNT(AUTO) 2.74 MIL/uL (4.2-6.2); RED CELL DISTRIBUTION WIDTH 14.7 % (9.0-15.0); WHITE BLOOD COUNT (AUTO) 12.4 K/uL (4.8-10.8)
[2024-05-22 06:02] LABS: CALCIUM 8.8 mg/dL (8.4-11.0); CREATININE 0.61 mg/dL (0.55-1.30); POTASSIUM 4.1 mmol/L (3.5-5.1)
[2024-05-22] MEDS: BALSAM PERU/CASTOR OIL 56.7 GM OINT...G. TP SCH (09:30)
[2024-05-22] MEDS: NORMAL SALINE 5 ML DISP.SYRIN IVF SCH (12:26)
[2024-05-22] MEDS: VANCOMYCIN HCL 1.25 GM/NS 250 ML IV SCH (16:27)
[2024-05-22] MEDS: PIPERACILLIN/TAZO 3.375 GM in D5W 50 ML IV SCH (21:44)
[2024-05-23] VITALS (12 sets, daily range): BP systolic 106–122; PULSE 56–62; RESP 16–20; TEMP 97.4–98.4; O2SAT 94–100
[2024-05-23 06:31] LABS: BASOPHILS % (AUTO) 0.1 % (0.0-2.0); EOSINOPHILS # (AUTO) 0.2 K/uL (0.0-0.4); EOSINOPHILS % (AUTO) 1.9 % (0.0-4.0); HEMATOCRIT 23.5 % (36-54); HEMOGLOBIN 7.6 g/dL (14.0-18.0); LYMPHOCYTES # (AUTO) 2.1 K/uL (1.0-5.5); LYMPHOCYTES % (AUTO) 15.9 % (20.5-51.5); MEAN CORPUSCULAR HEMOGLOBIN 27 pg (27-31); MEAN CORPUSCULAR HGB CONC 33 % (32-36); MEAN CORPUSCULAR VOLUME 83 fL (79.0-98.0); MONOCYTES # (AUTO) 0.9 K/uL (0.0-1.0); MONOCYTES % (AUTO) 6.6 % (1.7-9.3); NEUTROPHILS # (AUTO) 9.9 K/uL (1.8-7.7); NEUTROPHILS % (AUTO) 75.5 % (40.0-70.0); PLATELET COUNT (AUTO) 295 K/uL (130-430); RED BLOOD CELL COUNT(AUTO) 2.84 MIL/uL (4.2-6.2); RED CELL DISTRIBUTION WIDTH 14.7 % (9.0-15.0); WHITE BLOOD COUNT (AUTO) 13.1 K/uL (4.8-10.8)
[2024-05-23 06:46] LABS: CALCIUM 8.6 mg/dL (8.4-11.0); CREATININE 0.52 mg/dL (0.55-1.30); POTASSIUM 3.4 mmol/L (3.5-5.1); TOTAL BILIRUBIN 0.5 mg/dL (0.0-1.0); TOTAL PROTEIN, SERUM 7.1 g/dL (6.4-8.3)
[2024-05-23 08:01] LABS: ERYTHROCYTE SEDIMENTATION RATE 65 MM/HR (0-15)
[2024-05-23] MEDS ORDERED: ERTA1VIA3 INJ (09:24)
[2024-05-23] MEDS ORDERED: Vancomycin Per Pharmacy XX (09:24)
[2024-05-23] MEDS: POTASSIUM CHLORIDE 20 MEQ TABLET.ER PO ONE (10:23)
[2024-05-24] VITALS (7 sets, daily range): BP systolic 109–135; PULSE 54–62; RESP 18–19; TEMP 97.6–98; O2SAT 93–99
[2024-05-24] MEDS: ERTAPENEM SODIUM 1 GM in NS 50 ML IV SCH (04:02)
[2024-05-24 07:36] LABS: BASOPHILS % (AUTO) 0.1 % (0.0-2.0); EOSINOPHILS # (AUTO) 0.4 K/uL (0.0-0.4); EOSINOPHILS % (AUTO) 3.1 % (0.0-4.0); HEMATOCRIT 25.3 % (36-54); HEMOGLOBIN 8.2 g/dL (14.0-18.0); LYMPHOCYTES # (AUTO) 2.4 K/uL (1.0-5.5); LYMPHOCYTES % (AUTO) 17.4 % (20.5-51.5); MEAN CORPUSCULAR HEMOGLOBIN 27 pg (27-31); MEAN CORPUSCULAR HGB CONC 32 % (32-36); MEAN CORPUSCULAR VOLUME 84 fL (79.0-98.0); MONOCYTES # (AUTO) 0.9 K/uL (0.0-1.0); MONOCYTES % (AUTO) 6.4 % (1.7-9.3); NEUTROPHILS # (AUTO) 9.9 K/uL (1.8-7.7); PLATELET COUNT (AUTO) 333 K/uL (130-430); RED BLOOD CELL COUNT(AUTO) 3.03 MIL/uL (4.2-6.2); RED CELL DISTRIBUTION WIDTH 14.6 % (9.0-15.0); WHITE BLOOD COUNT (AUTO) 13.6 K/uL (4.8-10.8)
[2024-05-24 07:48] LABS: ERYTHROCYTE SEDIMENTATION RATE 82 MM/HR (0-15)
[2024-05-24 09:16] LABS: CALCIUM 8.9 mg/dL (8.4-11.0); CREATININE 0.48 mg/dL (0.55-1.30); POTASSIUM 3.6 mmol/L (3.5-5.1)
[2024-05-25] MEDS ORDERED: VANCOMYCIN HCL 1.25 GM/NS 250 ML IV SCH (06:00)
== END 2024-05-24 13:30 | DRG 871 ==
LOC: SED 22:14 → STU 05-18 00:57
PROVIDERS: ADMIT Preventive Medicine Preventive Medicine/Occupational Environmental Medicine; ATTEND Preventive Medicine Preventive Medicine/Occupational Environmental Medicine
PROC: 5A1935Z Respiratory Ventilation, Less than 24 Consecutive Hours (ICD-10-PCS; principal; 2024-05-20)
DX: A41.9 Sepsis, unspecified organism (principal); G82.50 Quadriplegia, unspecified; J18.9 Pneumonia, unspecified organism; J96.21 Acute and chronic respiratory failure with hypoxia; I21.4 Non-ST elevation (NSTEMI) myocardial infarction; I50.43 Acute on chronic combined systolic (congestive) and diastolic (congestive) heart failure; E87.1 Hypo-osmolality and hyponatremia; G93.1 Anoxic brain damage, not elsewhere classified; D63.8 Anemia in other chronic diseases classified elsewhere; E11.65 Type 2 diabetes mellitus with hyperglycemia; E78.5 Hyperlipidemia, unspecified; E83.52 Hypercalcemia; E87.5 Hyperkalemia; E87.6 Hypokalemia; Z20.822 Contact with and (suspected) exposure to COVID-19; N31.9 Neuromuscular dysfunction of bladder, unspecified; E88.09 Other disorders of plasma-protein metabolism, not elsewhere classified; K59.00 Constipation, unspecified; R13.10 Dysphagia, unspecified; Z93.3 Colostomy status; Z93.1 Gastrostomy status; Z79.01 Long term (current) use of anticoagulants; Z79.899 Other long term (current) drug therapy; Z88.8 Allergy status to other drugs, medicaments and biological substances
CPT/HCPCS: 36415; 71045; 80048; 80053; 80202; 81000; 81001; 81015; 82550; 82948; 83605; 83735; 83880; 84100; 84484; 85025; 85610; 85651; 85730; 87040; 87081; 87086; 93005; 93306; 94640; 94760; 99291; G0378; J0696; J1335; J1650; J2543; J3370; J3480; J7050; J7060

== ENCOUNTER 2024-06-10 07:06 | Inpatient (IN) | payer OTHER ==
[~2024-06-10] VITALS: Ht 182.9 cm; Wt 105.3 kg
[~2024-06-10 07:06] MED LIST changes: +GUAI-723 PO; +GUAI100S14 PO; +ONDA-8 TL; +SSNOVOLOG SUBCUT; +Vancomycin Per Pharmacy XX; +ZINC220T4 PO
[2024-06-10 07:14] VITALS: BP_SYST 111; PULSE 123; RESP 22; TEMP 101; O2SAT 96
[2024-06-10] MEDS: NACL 0.9% 1,000 ML IV ONE (07:37)
[2024-06-10] MEDS ORDERED: NIRM1TAB9 PO (07:48)
[2024-06-10 08:05] LABS: BASOPHILS % (AUTO) 0.1 % (0.0-2.0); HEMATOCRIT 25.3 % (36-54); HEMOGLOBIN 8.2 g/dL (14.0-18.0); LYMPHOCYTES # (AUTO) 1.6 K/uL (1.0-5.5); LYMPHOCYTES % (AUTO) 12.4 % (20.5-51.5); MEAN CORPUSCULAR HEMOGLOBIN 27 pg (27-31); MEAN CORPUSCULAR HGB CONC 32 % (32-36); MEAN CORPUSCULAR VOLUME 83 fL (79.0-98.0); MONOCYTES # (AUTO) 0.5 K/uL (0.0-1.0); MONOCYTES % (AUTO) 3.8 % (1.7-9.3); NEUTROPHILS # (AUTO) 10.8 K/uL (1.8-7.7); NEUTROPHILS % (AUTO) 83.7 % (40.0-70.0); PLATELET COUNT (AUTO) 236 K/uL (130-430); RED BLOOD CELL COUNT(AUTO) 3.07 MIL/uL (4.2-6.2); RED CELL DISTRIBUTION WIDTH 14.7 % (9.0-15.0); WHITE BLOOD COUNT (AUTO) 12.9 K/uL (4.8-10.8)
[2024-06-10] MEDS ORDERED: IPRA3AMP9 INH (08:13)
[2024-06-10] MEDS: ACETAMINOPHEN 325 MG TABLET PO ONE (08:14)
[2024-06-10 08:21] LABS: INR 1.5 (0.80-1.20); PROTHROMBIN TIME 15.8 SECS (9.5-12.5)
[2024-06-10 08:38] LABS: ALANINE AMINOTRANSFERASE 43 U/L (12-78); ALBUMIN 2.4 g/dL (3.4-4.8); ANION GAP 14 (5-15); ASPARTATE AMINOTRANSFERASE 41 U/L (10-37); BILIRUBIN,DIRECT 0.5 mg/dL (0.0-0.3); CALCIUM 8.7 mg/dL (8.4-11.0); CARBON DIOXIDE 20 mmol/L (23-29); CHLORIDE 100 mmol/L (98-107); CREATININE 0.67 mg/dL (0.55-1.30); GFR AFRICAN AMERICAN 155 mL/min (>90); GLUCOSE 158 mg/dL (74-106); SODIUM SERUM 134 mmol/L (136-145); TOTAL BILIRUBIN 0.7 mg/dL (0.0-1.0); TOTAL PROTEIN, SERUM 7.9 g/dL (6.4-8.3); UREA NITROGEN, BLOOD 11 mg/dL (8-21)
[2024-06-10 08:40] LABS: GFR NON AFRICAN-AMERICAN 128 mL/min (>90)
[2024-06-10] MEDS ORDERED: PIPERACILLIN/TAZOBACTAM 3.375 GM/VIAL (ZOSYN) IV ONE (09:30)
[2024-06-10 09:52] LABS: BILIRUBIN,URINE NEGATIVE (NEGATIVE); BLOOD, URINE 1+ (NEGATIVE); CLARITY/URINE CLEAR (CLEAR); COLOR,URINE YELLOW (YELLOW); GLUCOSE,URINE NEGATIVE (NEGATIVE); KETONES,URINE 1+ (NEGATIVE); LEUKOCYTE ESTERASE ,URINE 1+ (NEGATIVE); NITRITE, URINE NEGATIVE (NEGATIVE); PROTEIN URINE 2+ (NEGATIVE); UROBILINOGEN,URINE 0.2 (0.2-1.0)
[2024-06-10] MEDS: PIPERACILLIN/TAZO 3.375 GM in NS 50 ML IV ONE (09:58)
[2024-06-10] MEDS: ASPIRIN 81 MG TAB.CHEW PO ONE (09:59)
[2024-06-10 10:09] LABS: RBC,URINE 0-3 /HPF (0-3)
[2024-06-10 10:10] LABS: BACTERIA,URINE MANY /HPF (None Seen); URINE AMORPHOUS URATE 1+ /HPF (None Seen)
[2024-06-10 10:11] LABS: FINE GRANULAR CASTS,URINE 0-10 /LPF (None Seen)
[2024-06-10 10:37] LABS: INFLUENZA TYPE A Negative (NEGATIVE); INFLUENZA TYPE B NEGATIVE (NEGATIVE)
[2024-06-10 10:45] LABS: ABG O2 SAT% ESTIMATE 98.3 % (94.0-98.0); BLOOD GAS BASE EXCESS -4.6 mmol/L (-2.0-3.0); BLOOD GAS HCO3 18.8 mmol/L (21.0-28.0); BLOOD GAS PH 7.445 (7.350-7.450); BLOOD GAS PO2 111.8 mmHg (83.0-108.0)
[2024-06-10] MEDS ORDERED: IPRATROPIUM BROM 0.5 MG/2.5 ML VIAL.NEB (ATROVENT) INH ONE (10:57)
[2024-06-10] MEDS ORDERED: ALBUTEROL SULFATE 0.083% 2.5 MG/3 ML VIAL.NEB INH ONE (10:57)
[2024-06-10] MEDS ORDERED: NON-FORMULARY MEDICATION (Buprenorphine (Butrans) 1 PATCH) TP SCH (11:00)
[2024-06-10] MEDS ORDERED: ESCITALOPRAM OXALATE 10 MG TABLET PO SCH (11:00)
[2024-06-10] MEDS ORDERED: ACETAMINOPHEN 325 MG TABLET PO SCH (11:00)
[2024-06-10] MEDS ORDERED: LORazepam 2 MG/ML VIAL IVP PRN (11:00)
[2024-06-10] MEDS ORDERED: guaiFENesin 200 MG/10 ML UDC PO PRN (11:00)
[2024-06-10 11:10] VITALS: BP_SYST 121; PULSE 73; O2SAT 98
[2024-06-10] MEDS ORDERED: IPRATROPIUM/ALBUTEROL SULFATE 3 ML AMPUL.NEB (DUONEB) INH ONE ×2 (11:15→12:00)
[2024-06-10 13:30] VITALS: O2SAT 97
[2024-06-10] MEDS ORDERED: guaiFENesin/DEXTROMETHORPHAN 1 EACH TAB.ER.12H PO PRN (13:30)
[2024-06-10] MEDS: IPRATROPIUM BROM 0.5 MG/2.5 ML VIAL.NEB (ATROVENT) INH ONE ×2 (14:52→14:54)
[2024-06-10] MEDS: ALBUTEROL SULFATE 0.083% 2.5 MG/3 ML VIAL.NEB INH ONE (14:52)
[2024-06-10] MEDS: IPRATROPIUM/ALBUTEROL SULFATE 3 ML AMPUL.NEB (DUONEB) INH ONE (14:55)
[2024-06-10 14:56] VITALS: BP_SYST 120; PULSE 80; RESP 42; TEMP 98.7
[2024-06-10] MEDS: GABAPENTIN 100 MG CAPSULE PO SCH (15:45)
[2024-06-10] MEDS: BACLOFEN 10 MG TABLET PO SCH (15:45)
[2024-06-10] MEDS: METOCLOPRAMIDE HCL 10 MG TABLET PO SCH (15:45)
[2024-06-10] MEDS: CLOPIDOGREL BISULFATE 75 MG TABLET PO ONE (15:47)
[2024-06-10] MEDS: NORMAL SALINE 5 ML DISP.SYRIN IVF SCH (15:47)
[2024-06-10 17:58] VITALS: O2SAT 96
[2024-06-10] MEDS: INSULIN REGULAR, HUMAN 100 UNITS/ML, 3 ML VIAL (humuLIN R) SUBCUT PRN (18:10)
[2024-06-10 20:00] VITALS: BP_SYST 102; PULSE 60; RESP 18; O2SAT 96; O2SAT 98
[2024-06-10] MEDS: PIPERACILLIN/TAZO 3.375/DEX-IS 50 ML IV SCH (20:05)
[2024-06-10] MEDS ORDERED: [UNRECOGNIZED DRUG - OTHER] SUBCUT SCH (21:00)
[2024-06-10] MEDS: DOCUSATE SODIUM 250 MG CAPSULE PO SCH (21:22)
[2024-06-10] MEDS: ATORVASTATIN 20 MG TABLET PO SCH (21:25)
[2024-06-10] MEDS: FUROSEMIDE 20 MG TABLET PO SCH (21:28)
[2024-06-10] MEDS: INSULIN GLARGINE 100 UNITS/ML, 10 ML VIAL SUBCUT SCH (21:37)
[2024-06-10] MEDS: oxyBUTYnin chloride 5 MG TABLET PO SCH (21:38)
[2024-06-10] MEDS: FERROUS SULFATE 325 MG TABLET.DR PO SCH (21:38)
[2024-06-10] MEDS: PANTOPRAZOLE SODIUM 40 MG TAB PO SCH (21:43)
[2024-06-11] VITALS (8 sets, daily range): BP systolic 103–119; PULSE 61–76; RESP 16–20; TEMP 97.5–98.6; O2SAT 94–99
[2024-06-11 06:35] LABS: BASOPHILS % (AUTO) 0.1 % (0.0-2.0); EOSINOPHILS # (AUTO) 0.1 K/uL (0.0-0.4); HEMOGLOBIN 7.4 g/dL (14.0-18.0); LYMPHOCYTES # (AUTO) 1.9 K/uL (1.0-5.5); LYMPHOCYTES % (AUTO) 16.4 % (20.5-51.5); MEAN CORPUSCULAR HEMOGLOBIN 26 pg (27-31); MEAN CORPUSCULAR HGB CONC 32 % (32-36); MEAN CORPUSCULAR VOLUME 82 fL (79.0-98.0); MONOCYTES # (AUTO) 0.9 K/uL (0.0-1.0); MONOCYTES % (AUTO) 7.5 % (1.7-9.3); NEUTROPHILS # (AUTO) 8.7 K/uL (1.8-7.7); PLATELET COUNT (AUTO) 255 K/uL (130-430); RED BLOOD CELL COUNT(AUTO) 2.83 MIL/uL (4.2-6.2); WHITE BLOOD COUNT (AUTO) 11.6 K/uL (4.8-10.8)
[2024-06-11 07:04] LABS: ALBUMIN 2.2 g/dL (3.4-4.8); CALCIUM 8.8 mg/dL (8.4-11.0); CREATININE 0.6 mg/dL (0.55-1.30); TOTAL BILIRUBIN 0.5 mg/dL (0.0-1.0); TOTAL PROTEIN, SERUM 7.4 g/dL (6.4-8.3)
[2024-06-11] MEDS: TAMSULOSIN HCL 0.4 MG CAP PO SCH (08:48)
[2024-06-11] MEDS: LACTULOSE 20 GM/30 ML UDC PO SCH (08:48)
[2024-06-11] MEDS: ASCORBIC ACID 500 MG TABLET PO SCH (08:49)
[2024-06-11] MEDS: CITALOPRAM HYDROBROMIDE 20 MG TABLET PO SCH (08:50)
[2024-06-11] MEDS: CHOLECALCIFEROL (VITAMIN D3) 2,000 UNIT TABLET PO SCH (08:50)
[2024-06-11] MEDS: CLOPIDOGREL BISULFATE 75 MG TABLET PO SCH (08:50)
[2024-06-11] MEDS: ACETAMINOPHEN 325 MG TABLET PO PRN (08:51)
[2024-06-11] MEDS: MULTIVITAMINS TAB 1 TABLET PO SCH (08:52)
[2024-06-12] VITALS (8 sets, daily range): BP systolic 97–108; PULSE 63–66; RESP 16–18; TEMP 97.2–98.3; O2SAT 91–97
[2024-06-12 06:11] LABS: ERYTHROCYTE SEDIMENTATION RATE 107 MM/HR (0-15)
[2024-06-12 06:15] LABS: BASOPHILS % (AUTO) 0.2 % (0.0-2.0); EOSINOPHILS # (AUTO) 0.2 K/uL (0.0-0.4); EOSINOPHILS % (AUTO) 1.2 % (0.0-4.0); HEMATOCRIT 23.1 % (36-54); HEMOGLOBIN 7.3 g/dL (14.0-18.0); LYMPHOCYTES # (AUTO) 2.2 K/uL (1.0-5.5); LYMPHOCYTES % (AUTO) 16.5 % (20.5-51.5); MEAN CORPUSCULAR HEMOGLOBIN 26 pg (27-31); MEAN CORPUSCULAR HGB CONC 32 % (32-36); MEAN CORPUSCULAR VOLUME 82 fL (79.0-98.0); MONOCYTES % (AUTO) 7.4 % (1.7-9.3); NEUTROPHILS % (AUTO) 74.7 % (40.0-70.0); PLATELET COUNT (AUTO) 288 K/uL (130-430); RED BLOOD CELL COUNT(AUTO) 2.81 MIL/uL (4.2-6.2); RED CELL DISTRIBUTION WIDTH 14.7 % (9.0-15.0); WHITE BLOOD COUNT (AUTO) 13.4 K/uL (4.8-10.8)
[2024-06-12 06:42] LABS: CALCIUM 8.6 mg/dL (8.4-11.0); CREATININE 0.6 mg/dL (0.55-1.30); POTASSIUM 3.8 mmol/L (3.5-5.1)
[2024-06-12] MEDS: PANTOPRAZOLE SODIUM 40 MG TAB PO SCH (08:47)
[2024-06-12] MEDS: ASPIRIN 81 MG TAB.CHEW GT SCH (08:48)
[2024-06-12] MEDS: IPRATROPIUM/ALBUTEROL SULFATE 3 ML AMPUL.NEB (DUONEB) INH PRN (14:56)
[2024-06-12 15:29] LABS: BLOOD GAS PCO2 32.2 mmHg (35.0-48.0); BLOOD GAS PH 7.444 (7.350-7.450); BLOOD GAS PO2 63.7 mmHg (83.0-108.0)
[2024-06-12 15:30] LABS: ABG O2 SAT% ESTIMATE 93.4 % (94.0-98.0); BLOOD GAS BASE EXCESS -1.9 mmol/L (-2.0-3.0); BLOOD GAS HCO3 21.6 mmol/L (21.0-28.0)
[2024-06-13] VITALS (11 sets, daily range): BP systolic 119–124; PULSE 51–60; RESP 16–19; TEMP 97.4–98.4; O2SAT 96–100
[2024-06-13 06:26] LABS: BASOPHILS % (AUTO) 0.1 % (0.0-2.0); EOSINOPHILS % (AUTO) 0.2 % (0.0-4.0); HEMATOCRIT 23.1 % (36-54); HEMOGLOBIN 7.4 g/dL (14.0-18.0); LYMPHOCYTES # (AUTO) 2.5 K/uL (1.0-5.5); LYMPHOCYTES % (AUTO) 14.2 % (20.5-51.5); MEAN CORPUSCULAR HEMOGLOBIN 26 pg (27-31); MEAN CORPUSCULAR HGB CONC 32 % (32-36); MEAN CORPUSCULAR VOLUME 82 fL (79.0-98.0); MONOCYTES # (AUTO) 0.9 K/uL (0.0-1.0); NEUTROPHILS # (AUTO) 14.2 K/uL (1.8-7.7); NEUTROPHILS % (AUTO) 80.5 % (40.0-70.0); PLATELET COUNT (AUTO) 323 K/uL (130-430); RED BLOOD CELL COUNT(AUTO) 2.81 MIL/uL (4.2-6.2); WHITE BLOOD COUNT (AUTO) 17.6 K/uL (4.8-10.8)
[2024-06-13 06:42] LABS: ERYTHROCYTE SEDIMENTATION RATE 81 MM/HR (0-15)
[2024-06-13 07:11] LABS: CALCIUM 8.8 mg/dL (8.4-11.0); CREATININE 0.58 mg/dL (0.55-1.30); POTASSIUM 3.2 mmol/L (3.5-5.1); TOTAL BILIRUBIN 0.5 mg/dL (0.0-1.0); TOTAL PROTEIN, SERUM 7.4 g/dL (6.4-8.3)
[2024-06-13] MEDS: POTASSIUM CHLORIDE 20 MEQ TABLET.ER PO ONE (10:35)
[2024-06-13] MEDS: VANCOMYCIN HCL 1 GM/NS PREMIX 250 ML IV SCH (13:21)
[2024-06-13] MEDS: FLUCONAZOLE 100 MG TABLET (DIFLUCAN) PO ONE (13:21)
[2024-06-14] VITALS (9 sets, daily range): BP systolic 110–131; PULSE 60–69; RESP 19–20; TEMP 97.8–98.6; O2SAT 94–100
[2024-06-14 06:30] LABS: BASOPHILS % (AUTO) 0.1 % (0.0-2.0); EOSINOPHILS # (AUTO) 0.1 K/uL (0.0-0.4); EOSINOPHILS % (AUTO) 0.9 % (0.0-4.0); HEMATOCRIT 24.4 % (36-54); HEMOGLOBIN 7.8 g/dL (14.0-18.0); LYMPHOCYTES # (AUTO) 4.4 K/uL (1.0-5.5); LYMPHOCYTES % (AUTO) 27.1 % (20.5-51.5); MEAN CORPUSCULAR HEMOGLOBIN 26 pg (27-31); MEAN CORPUSCULAR HGB CONC 32 % (32-36); MEAN CORPUSCULAR VOLUME 82 fL (79.0-98.0); MONOCYTES % (AUTO) 5.9 % (1.7-9.3); NEUTROPHILS # (AUTO) 10.8 K/uL (1.8-7.7); PLATELET COUNT (AUTO) 362 K/uL (130-430); RED BLOOD CELL COUNT(AUTO) 2.97 MIL/uL (4.2-6.2); RED CELL DISTRIBUTION WIDTH 15.4 % (9.0-15.0); WHITE BLOOD COUNT (AUTO) 16.3 K/uL (4.8-10.8)
[2024-06-14 06:55] LABS: ERYTHROCYTE SEDIMENTATION RATE 106 MM/HR (0-15)
[2024-06-14 07:01] LABS: CALCIUM 8.7 mg/dL (8.4-11.0); CREATININE 0.54 mg/dL (0.55-1.30)
[2024-06-14] MEDS: FLUCONAZOLE 100 MG TABLET (DIFLUCAN) PO SCH (11:10)
[2024-06-14] MEDS: ONDANSETRON HCL 4 MG/2 ML VIAL IVP PRN (11:21)
[2024-06-14] MEDS: oxyCODONE HCL 5 MG TABLET PO PRN (11:21)
[2024-06-15] VITALS (8 sets, daily range): BP systolic 104–116; PULSE 51–71; RESP 17–20; TEMP 97.5–98; O2SAT 92–98
[2024-06-15 06:14] LABS: BASOPHILS % (AUTO) 0.2 % (0.0-2.0); EOSINOPHILS # (AUTO) 0.4 K/uL (0.0-0.4); EOSINOPHILS % (AUTO) 3.5 % (0.0-4.0); HEMATOCRIT 23.5 % (36-54); HEMOGLOBIN 7.5 g/dL (14.0-18.0); LYMPHOCYTES # (AUTO) 2.8 K/uL (1.0-5.5); LYMPHOCYTES % (AUTO) 23.3 % (20.5-51.5); MEAN CORPUSCULAR HEMOGLOBIN 26 pg (27-31); MEAN CORPUSCULAR HGB CONC 32 % (32-36); MEAN CORPUSCULAR VOLUME 83 fL (79.0-98.0); MONOCYTES # (AUTO) 0.8 K/uL (0.0-1.0); PLATELET COUNT (AUTO) 414 K/uL (130-430); RED BLOOD CELL COUNT(AUTO) 2.84 MIL/uL (4.2-6.2); RED CELL DISTRIBUTION WIDTH 15.3 % (9.0-15.0); WHITE BLOOD COUNT (AUTO) 12.1 K/uL (4.8-10.8)
[2024-06-15 06:38] LABS: CALCIUM 9.2 mg/dL (8.4-11.0); CREATININE 0.55 mg/dL (0.55-1.30); POTASSIUM 3.5 mmol/L (3.5-5.1)
[2024-06-15 07:36] LABS: ERYTHROCYTE SEDIMENTATION RATE 85 MM/HR (0-15)
[2024-06-15] MEDS: BALSAM PERU/CASTOR OIL 56.7 GM OINT...G. TP SCH (09:00)
[2024-06-15 21:35] LABS: VANCOMYCIN,RANDOM 29.1 ug/mL (20.0-30.0)
[2024-06-16] VITALS (7 sets, daily range): BP systolic 103–118; PULSE 49–52; RESP 17–20; TEMP 97.8–97.9; O2SAT 97–100
[2024-06-16 05:55] LABS: BASOPHILS % (AUTO) 0.3 % (0.0-2.0); EOSINOPHILS # (AUTO) 0.4 K/uL (0.0-0.4); EOSINOPHILS % (AUTO) 2.9 % (0.0-4.0); HEMATOCRIT 23.1 % (36-54); HEMOGLOBIN 7.5 g/dL (14.0-18.0); LYMPHOCYTES # (AUTO) 2.3 K/uL (1.0-5.5); LYMPHOCYTES % (AUTO) 16.5 % (20.5-51.5); MEAN CORPUSCULAR HEMOGLOBIN 26 pg (27-31); MEAN CORPUSCULAR HGB CONC 32 % (32-36); MEAN CORPUSCULAR VOLUME 81 fL (79.0-98.0); MONOCYTES % (AUTO) 6.8 % (1.7-9.3); NEUTROPHILS # (AUTO) 10.3 K/uL (1.8-7.7); NEUTROPHILS % (AUTO) 73.5 % (40.0-70.0); PLATELET COUNT (AUTO) 408 K/uL (130-430); RED BLOOD CELL COUNT(AUTO) 2.84 MIL/uL (4.2-6.2); RED CELL DISTRIBUTION WIDTH 15.6 % (9.0-15.0); WHITE BLOOD COUNT (AUTO) 14.1 K/uL (4.8-10.8)
[2024-06-16 06:25] LABS: ERYTHROCYTE SEDIMENTATION RATE 81 MM/HR (0-15)
[2024-06-16 06:43] LABS: ALBUMIN 1.9 g/dL (3.4-4.8); CALCIUM 9.1 mg/dL (8.4-11.0); CREATININE 0.57 mg/dL (0.55-1.30); POTASSIUM 3.5 mmol/L (3.5-5.1); TOTAL BILIRUBIN 0.3 mg/dL (0.0-1.0); TOTAL PROTEIN, SERUM 7.2 g/dL (6.4-8.3)
[2024-06-17] VITALS (7 sets, daily range): BP systolic 110–118; PULSE 50–62; RESP 17–20; TEMP 96.9–98.3; O2SAT 98–100
[2024-06-17 06:42] LABS: BASOPHILS % (AUTO) 0.4 % (0.0-2.0); EOSINOPHILS # (AUTO) 0.7 K/uL (0.0-0.4); EOSINOPHILS % (AUTO) 5.6 % (0.0-4.0); HEMATOCRIT 24.7 % (36-54); HEMOGLOBIN 7.9 g/dL (14.0-18.0); LYMPHOCYTES # (AUTO) 2.7 K/uL (1.0-5.5); MEAN CORPUSCULAR HEMOGLOBIN 26 pg (27-31); MEAN CORPUSCULAR HGB CONC 32 % (32-36); MEAN CORPUSCULAR VOLUME 82 fL (79.0-98.0); MONOCYTES % (AUTO) 8.5 % (1.7-9.3); NEUTROPHILS # (AUTO) 7.8 K/uL (1.8-7.7); NEUTROPHILS % (AUTO) 63.5 % (40.0-70.0); PLATELET COUNT (AUTO) 452 K/uL (130-430); RED BLOOD CELL COUNT(AUTO) 3.02 MIL/uL (4.2-6.2); RED CELL DISTRIBUTION WIDTH 15.4 % (9.0-15.0); WHITE BLOOD COUNT (AUTO) 12.2 K/uL (4.8-10.8)
[2024-06-17 06:51] LABS: CREATININE 0.48 mg/dL (0.55-1.30); POTASSIUM 3.1 mmol/L (3.5-5.1)
[2024-06-17 08:23] LABS: ERYTHROCYTE SEDIMENTATION RATE 90 MM/HR (0-15)
[2024-06-17] MEDS: POTASSIUM CHLORIDE 20 MEQ TABLET.ER PO ONE (12:07)
[2024-06-18] VITALS (11 sets, daily range): BP systolic 100–121; PULSE 51–88; RESP 16–20; TEMP 96.9–98.7; O2SAT 93–99
[2024-06-18 07:01] LABS: CALCIUM 9.1 mg/dL (8.4-11.0); CREATININE 0.5 mg/dL (0.55-1.30); POTASSIUM 3.3 mmol/L (3.5-5.1); TOTAL BILIRUBIN 0.7 mg/dL (0.0-1.0); TOTAL PROTEIN, SERUM 7.5 g/dL (6.4-8.3)
[2024-06-18 07:35] LABS: ERYTHROCYTE SEDIMENTATION RATE 96 MM/HR (0-15)
[2024-06-18 07:51] LABS: BASOPHILS # (AUTO) 0.1 K/uL (0.0-0.2); BASOPHILS % (AUTO) 0.5 % (0.0-2.0); EOSINOPHILS # (AUTO) 0.5 K/uL (0.0-0.4); EOSINOPHILS % (AUTO) 4.2 % (0.0-4.0); HEMATOCRIT 25.7 % (36-54); HEMOGLOBIN 8.3 g/dL (14.0-18.0); LYMPHOCYTES # (AUTO) 2.9 K/uL (1.0-5.5); LYMPHOCYTES % (AUTO) 24.7 % (20.5-51.5); MEAN CORPUSCULAR HEMOGLOBIN 27 pg (27-31); MEAN CORPUSCULAR HGB CONC 32 % (32-36); MEAN CORPUSCULAR VOLUME 83 fL (79.0-98.0); MONOCYTES # (AUTO) 0.8 K/uL (0.0-1.0); MONOCYTES % (AUTO) 7.2 % (1.7-9.3); NEUTROPHILS # (AUTO) 7.4 K/uL (1.8-7.7); NEUTROPHILS % (AUTO) 63.4 % (40.0-70.0); PLATELET COUNT (AUTO) 453 K/uL (130-430); RED CELL DISTRIBUTION WIDTH 15.8 % (9.0-15.0); WHITE BLOOD COUNT (AUTO) 11.6 K/uL (4.8-10.8)
[2024-06-18] MEDS: POTASSIUM CHLORIDE 20 MEQ TABLET.ER PO ONE (12:20)
[2024-06-19] VITALS (9 sets, daily range): BP systolic 106–123; PULSE 50–97; RESP 16–18; TEMP 97.6–98.6; O2SAT 94–100
[2024-06-19 06:08] LABS: BASOPHILS # (AUTO) 0.1 K/uL (0.0-0.2); BASOPHILS % (AUTO) 0.5 % (0.0-2.0); EOSINOPHILS # (AUTO) 0.4 K/uL (0.0-0.4); EOSINOPHILS % (AUTO) 2.5 % (0.0-4.0); HEMATOCRIT 24.3 % (36-54); HEMOGLOBIN 7.7 g/dL (14.0-18.0); LYMPHOCYTES # (AUTO) 3.3 K/uL (1.0-5.5); LYMPHOCYTES % (AUTO) 22.6 % (20.5-51.5); MEAN CORPUSCULAR HEMOGLOBIN 26 pg (27-31); MEAN CORPUSCULAR HGB CONC 32 % (32-36); MEAN CORPUSCULAR VOLUME 83 fL (79.0-98.0); MONOCYTES % (AUTO) 6.7 % (1.7-9.3); NEUTROPHILS # (AUTO) 9.9 K/uL (1.8-7.7); NEUTROPHILS % (AUTO) 67.7 % (40.0-70.0); PLATELET COUNT (AUTO) 402 K/uL (130-430); RED BLOOD CELL COUNT(AUTO) 2.94 MIL/uL (4.2-6.2); RED CELL DISTRIBUTION WIDTH 15.7 % (9.0-15.0); WHITE BLOOD COUNT (AUTO) 14.6 K/uL (4.8-10.8)
[2024-06-19 06:19] LABS: CALCIUM 8.9 mg/dL (8.4-11.0); CREATININE 0.93 mg/dL (0.55-1.30); POTASSIUM 3.5 mmol/L (3.5-5.1)
[2024-06-19 06:27] LABS: ERYTHROCYTE SEDIMENTATION RATE 80 MM/HR (0-15)
[2024-06-20] VITALS (10 sets, daily range): BP systolic 95–107; PULSE 47–86; RESP 12–20; TEMP 96.5–97.8; O2SAT 97–100
[2024-06-20 06:39] LABS: BASOPHILS # (AUTO) 0.1 K/uL (0.0-0.2); BASOPHILS % (AUTO) 0.3 % (0.0-2.0); EOSINOPHILS # (AUTO) 0.4 K/uL (0.0-0.4); EOSINOPHILS % (AUTO) 2.6 % (0.0-4.0); HEMOGLOBIN 7.5 g/dL (14.0-18.0); LYMPHOCYTES # (AUTO) 4.6 K/uL (1.0-5.5); LYMPHOCYTES % (AUTO) 30.2 % (20.5-51.5); MEAN CORPUSCULAR HEMOGLOBIN 26 pg (27-31); MEAN CORPUSCULAR HGB CONC 31 % (32-36); MEAN CORPUSCULAR VOLUME 83 fL (79.0-98.0); MONOCYTES # (AUTO) 0.9 K/uL (0.0-1.0); MONOCYTES % (AUTO) 5.7 % (1.7-9.3); NEUTROPHILS # (AUTO) 9.4 K/uL (1.8-7.7); NEUTROPHILS % (AUTO) 61.2 % (40.0-70.0); PLATELET COUNT (AUTO) 349 K/uL (130-430); RED BLOOD CELL COUNT(AUTO) 2.89 MIL/uL (4.2-6.2); RED CELL DISTRIBUTION WIDTH 16.2 % (9.0-15.0); WHITE BLOOD COUNT (AUTO) 15.4 K/uL (4.8-10.8)
[2024-06-20 07:03] LABS: ALBUMIN 1.9 g/dL (3.4-4.8); CREATININE 1.1 mg/dL (0.55-1.30); POTASSIUM 3.7 mmol/L (3.5-5.1); TOTAL BILIRUBIN 0.4 mg/dL (0.0-1.0)
[2024-06-20 07:22] LABS: ERYTHROCYTE SEDIMENTATION RATE 74 MM/HR (0-15)
[2024-06-20] MEDS: MEROPENEM 1 GM in NS 100 ML IV SCH (14:52)
[2024-06-21] VITALS (10 sets, daily range): BP systolic 86–132; PULSE 42–63; RESP 12–20; TEMP 96.8–98.1; O2SAT 95–100
[2024-06-21 07:55] LABS: BASOPHILS % (AUTO) 0.2 % (0.0-2.0); EOSINOPHILS # (AUTO) 0.3 K/uL (0.0-0.4); EOSINOPHILS % (AUTO) 1.8 % (0.0-4.0); HEMOGLOBIN 8.1 g/dL (14.0-18.0); LYMPHOCYTES # (AUTO) 3.1 K/uL (1.0-5.5); LYMPHOCYTES % (AUTO) 20.3 % (20.5-51.5); MEAN CORPUSCULAR HEMOGLOBIN 26 pg (27-31); MEAN CORPUSCULAR HGB CONC 31 % (32-36); MEAN CORPUSCULAR VOLUME 84 fL (79.0-98.0); MONOCYTES % (AUTO) 6.3 % (1.7-9.3); NEUTROPHILS # (AUTO) 10.9 K/uL (1.8-7.7); NEUTROPHILS % (AUTO) 71.4 % (40.0-70.0); PLATELET COUNT (AUTO) 318 K/uL (130-430); RED BLOOD CELL COUNT(AUTO) 3.11 MIL/uL (4.2-6.2); RED CELL DISTRIBUTION WIDTH 16.3 % (9.0-15.0); WHITE BLOOD COUNT (AUTO) 15.2 K/uL (4.8-10.8)
[2024-06-21 08:13] LABS: ERYTHROCYTE SEDIMENTATION RATE 80 MM/HR (0-15)
[2024-06-21 08:19] LABS: CALCIUM 9.1 mg/dL (8.4-11.0); CREATININE 1.26 mg/dL (0.55-1.30); POTASSIUM 3.4 mmol/L (3.5-5.1)
[2024-06-21] MEDS: NS 500 ML IV ONE (17:00)
[2024-06-21] MEDS: POTASSIUM CHLORIDE 20 MEQ TABLET.ER PO ONE (17:34)
[2024-06-22] VITALS (23 sets, daily range): BP systolic 64–148; PULSE 41–105; RESP 11–23; TEMP 96–98.9; O2SAT 91–100
[2024-06-22] MEDS: NS 500 ML IV ONE (00:06)
[2024-06-22] MEDS: MIDODRINE HCL 5 MG TABLET (PROAMATINE) PO ONE (06:30)
[2024-06-22 08:48] LABS: BASOPHILS % (AUTO) 0.2 % (0.0-2.0); EOSINOPHILS # (AUTO) 0.1 K/uL (0.0-0.4); EOSINOPHILS % (AUTO) 0.5 % (0.0-4.0); HEMATOCRIT 26.6 % (36-54); HEMOGLOBIN 8.2 g/dL (14.0-18.0); LYMPHOCYTES # (AUTO) 1.7 K/uL (1.0-5.5); LYMPHOCYTES % (AUTO) 9.2 % (20.5-51.5); MEAN CORPUSCULAR HEMOGLOBIN 26 pg (27-31); MEAN CORPUSCULAR HGB CONC 31 % (32-36); MEAN CORPUSCULAR VOLUME 84 fL (79.0-98.0); MONOCYTES # (AUTO) 0.8 K/uL (0.0-1.0); MONOCYTES % (AUTO) 4.4 % (1.7-9.3); NEUTROPHILS % (AUTO) 85.7 % (40.0-70.0); PLATELET COUNT (AUTO) 273 K/uL (130-430); RED BLOOD CELL COUNT(AUTO) 3.15 MIL/uL (4.2-6.2); RED CELL DISTRIBUTION WIDTH 16.8 % (9.0-15.0); WHITE BLOOD COUNT (AUTO) 18.7 K/uL (4.8-10.8)
[2024-06-22 08:57] LABS: ERYTHROCYTE SEDIMENTATION RATE 80 MM/HR (0-15)
[2024-06-22 09:00] LABS: CALCIUM 9.2 mg/dL (8.4-11.0); CREATININE 1.48 mg/dL (0.55-1.30); POTASSIUM 4.5 mmol/L (3.5-5.1)
[2024-06-22] MEDS: MIDODRINE HCL 5 MG TABLET (PROAMATINE) PO SCH (10:10)
[2024-06-22] MEDS: DOPamine PREMIX 250 ML IV PRN (16:52)
[2024-06-22 23:37] LABS: ABG O2 SAT% ESTIMATE 99.2 % (94.0-98.0); ALLEN'S TEST POSITIVE (P); BLOOD GAS BASE EXCESS -8.9 mmol/L (-2.0-3.0); BLOOD GAS HCO3 18.3 mmol/L (21.0-28.0); BLOOD GAS PCO2 44.9 mmHg (35.0-48.0); BLOOD GAS PH 7.228 (7.350-7.450); BLOOD GAS PO2 210.2 mmHg (83.0-108.0)
[2024-06-23] VITALS (36 sets, daily range): BP systolic 105–163; PULSE 55–76; RESP 16–30; TEMP 96.1–97.8; O2SAT 97–100
[2024-06-23] MEDS: NACL 0.9% 1,000 ML IV SCH (01:03)
[2024-06-23 05:00] LABS: ABG O2 SAT% ESTIMATE 95.9 % (94.0-98.0); ALLEN'S TEST POSITIVE (P); BLOOD GAS BASE EXCESS -5.9 mmol/L (-2.0-3.0); BLOOD GAS PH 7.352 (7.350-7.450); BLOOD GAS PO2 83.5 mmHg (83.0-108.0)
[2024-06-23 06:35] LABS: BASOPHILS # (AUTO) 0.1 K/uL (0.0-0.2); BASOPHILS % (AUTO) 0.3 % (0.0-2.0); EOSINOPHILS # (AUTO) 0.1 K/uL (0.0-0.4); EOSINOPHILS % (AUTO) 0.7 % (0.0-4.0); HEMATOCRIT 27.1 % (36-54); HEMOGLOBIN 8.6 g/dL (14.0-18.0); LYMPHOCYTES # (AUTO) 2.6 K/uL (1.0-5.5); LYMPHOCYTES % (AUTO) 11.6 % (20.5-51.5); MEAN CORPUSCULAR HEMOGLOBIN 26 pg (27-31); MEAN CORPUSCULAR HGB CONC 32 % (32-36); MEAN CORPUSCULAR VOLUME 82 fL (79.0-98.0); MONOCYTES # (AUTO) 1.1 K/uL (0.0-1.0); MONOCYTES % (AUTO) 4.9 % (1.7-9.3); NEUTROPHILS # (AUTO) 18.6 K/uL (1.8-7.7); NEUTROPHILS % (AUTO) 82.5 % (40.0-70.0); PLATELET COUNT (AUTO) 304 K/uL (130-430); RED CELL DISTRIBUTION WIDTH 16.3 % (9.0-15.0); WHITE BLOOD COUNT (AUTO) 22.5 K/uL (4.8-10.8)
[2024-06-23 06:39] LABS: ERYTHROCYTE SEDIMENTATION RATE 97 MM/HR (0-15)
[2024-06-23 06:57] LABS: ALBUMIN 1.8 g/dL (3.4-4.8); CREATININE 1.76 mg/dL (0.55-1.30); PHOSPHORUS 4.2 mg/dL (2.7-4.5); POTASSIUM 4.5 mmol/L (3.5-5.1); TOTAL BILIRUBIN 0.3 mg/dL (0.0-1.0); TOTAL PROTEIN, SERUM 7.2 g/dL (6.4-8.3)
[2024-06-23 08:30] LABS: BILIRUBIN,URINE NEGATIVE (NEGATIVE); BLOOD, URINE 3+ (NEGATIVE); CLARITY/URINE CLOUDY (CLEAR); COLOR,URINE YELLOW (YELLOW); GLUCOSE,URINE NEGATIVE (NEGATIVE); KETONES,URINE 1+ (NEGATIVE); LEUKOCYTE ESTERASE ,URINE 2+ (NEGATIVE); NITRITE, URINE NEGATIVE (NEGATIVE); PH,URINE 5.5 (5.0-8.0); PROTEIN URINE 2+ (NEGATIVE); UROBILINOGEN,URINE 0.2 (0.2-1.0)
[2024-06-23 08:55] LABS: BACTERIA,URINE MANY /HPF (None Seen); CALCIUM OXALATE CRYSTALS,UR 0-10 /HPF (None Seen); RBC,URINE >100 /HPF (0-3); WBC,URINE >100 /HPF (0-3); YEAST,URINE Moderate /HPF (None Seen)
[2024-06-23] MEDS ORDERED: FLUCONAZOLE 200 mg/ NS 100 ML IV SCH (15:30)
[2024-06-23 17:23] LABS: CALCIUM 8.8 mg/dL (8.4-11.0); CREATININE 1.94 mg/dL (0.55-1.30); POTASSIUM 4.4 mmol/L (3.5-5.1)
[2024-06-23] MEDS: MEROPENEM 500 MG in NS 50 ML IV SCH (18:24)
[2024-06-24] VITALS (37 sets, daily range): BP systolic 107–161; PULSE 42–115; RESP 15–26; TEMP 97.6–98.6; O2SAT 92–100
[2024-06-24 06:09] LABS: ERYTHROCYTE SEDIMENTATION RATE 82 MM/HR (0-15)
[2024-06-24 06:23] LABS: BASOPHILS % (AUTO) 0.3 % (0.0-2.0); EOSINOPHILS # (AUTO) 0.4 K/uL (0.0-0.4); EOSINOPHILS % (AUTO) 2.2 % (0.0-4.0); HEMATOCRIT 25.2 % (36-54); LYMPHOCYTES % (AUTO) 17.6 % (20.5-51.5); MEAN CORPUSCULAR HEMOGLOBIN 26 pg (27-31); MEAN CORPUSCULAR HGB CONC 32 % (32-36); MEAN CORPUSCULAR VOLUME 82 fL (79.0-98.0); MONOCYTES # (AUTO) 0.5 K/uL (0.0-1.0); MONOCYTES % (AUTO) 2.7 % (1.7-9.3); NEUTROPHILS # (AUTO) 13.3 K/uL (1.8-7.7); NEUTROPHILS % (AUTO) 77.2 % (40.0-70.0); PLATELET COUNT (AUTO) 259 K/uL (130-430); RED BLOOD CELL COUNT(AUTO) 3.08 MIL/uL (4.2-6.2); RED CELL DISTRIBUTION WIDTH 16.6 % (9.0-15.0); WHITE BLOOD COUNT (AUTO) 17.2 K/uL (4.8-10.8)
[2024-06-24 06:37] LABS: CALCIUM 8.7 mg/dL (8.4-11.0); CREATININE 1.97 mg/dL (0.55-1.30); PHOSPHORUS 3.3 mg/dL (2.7-4.5); POTASSIUM 4.2 mmol/L (3.5-5.1)
[2024-06-24] MEDS: FLUCONAZOLE 200 mg/ NS 100 ML IV SCH (09:27)
[2024-06-24 15:13] LABS: CHLORIDE,URINE RANDOM 64 mmol/L (55-125)
[2024-06-24] MEDS: ALBUMIN HUMAN 5% 250 ML IV ONE (19:44)
[2024-06-24] MEDS: NACL 0.9% 1,000 ML IV SCH (19:45)
[2024-06-24] MEDS: HEPARIN SODIUM,PORCINE 5,000 UNITS/ML VIAL SUBCUT SCH (21:54)
[2024-06-24 23:53] LABS: BILIRUBIN,URINE NEGATIVE (NEGATIVE); BLOOD, URINE 3+ (NEGATIVE); CLARITY/URINE SL CLOUDY (CLEAR); COLOR,URINE YELLOW (YELLOW); GLUCOSE,URINE NEGATIVE (NEGATIVE); KETONES,URINE NEGATIVE (NEGATIVE); LEUKOCYTE ESTERASE ,URINE 1+ (NEGATIVE); NITRITE, URINE NEGATIVE (NEGATIVE); PROTEIN URINE 2+ (NEGATIVE); UROBILINOGEN,URINE 0.2 (0.2-1.0)
[2024-06-25] VITALS (37 sets, daily range): BP systolic 104–161; PULSE 40–53; RESP 22–46; TEMP 96.3–98; O2SAT 98–100
[2024-06-25 00:46] LABS: BACTERIA,URINE MANY /HPF (None Seen); WBC,URINE >100 /HPF (0-3)
[2024-06-25 00:47] LABS: YEAST,URINE Moderate /HPF (None Seen)
[2024-06-25 07:09] LABS: BASOPHILS % (AUTO) 0.2 % (0.0-2.0); EOSINOPHILS # (AUTO) 0.3 K/uL (0.0-0.4); EOSINOPHILS % (AUTO) 2.6 % (0.0-4.0); LYMPHOCYTES # (AUTO) 2.7 K/uL (1.0-5.5); LYMPHOCYTES % (AUTO) 20.4 % (20.5-51.5); MEAN CORPUSCULAR HEMOGLOBIN 26 pg (27-31); MEAN CORPUSCULAR HGB CONC 31 % (32-36); MEAN CORPUSCULAR VOLUME 83 fL (79.0-98.0); MONOCYTES # (AUTO) 0.5 K/uL (0.0-1.0); MONOCYTES % (AUTO) 3.9 % (1.7-9.3); NEUTROPHILS # (AUTO) 9.6 K/uL (1.8-7.7); NEUTROPHILS % (AUTO) 72.9 % (40.0-70.0); PLATELET COUNT (AUTO) 195 K/uL (130-430); RED BLOOD CELL COUNT(AUTO) 2.56 MIL/uL (4.2-6.2); WHITE BLOOD COUNT (AUTO) 13.1 K/uL (4.8-10.8)
[2024-06-25 07:21] LABS: ERYTHROCYTE SEDIMENTATION RATE 53 MM/HR (0-15)
[2024-06-25 07:38] LABS: HEMATOCRIT 21.2 % (36-54); HEMOGLOBIN 6.6 g/dL (14.0-18.0)
[2024-06-25 08:27] LABS: ALBUMIN 1.7 g/dL (3.4-4.8); CALCIUM 8.8 mg/dL (8.4-11.0); CREATININE 2.13 mg/dL (0.55-1.30); PHOSPHORUS 3.4 mg/dL (2.7-4.5); TOTAL BILIRUBIN 0.3 mg/dL (0.0-1.0); TOTAL PROTEIN, SERUM 6.3 g/dL (6.4-8.3)
[2024-06-25] MEDS: DOCUSATE SODIUM 100 MG/10 ML UDC NG SCH (08:31)
[2024-06-25 08:35] LABS: VANCOMYCIN,RANDOM 56.3 ug/mL (20.0-30.0)
[2024-06-25] MEDS: HEPARIN SODIUM,PORCINE 5,000 UNITS/ML VIAL SUBCUT ONE (13:30)
[2024-06-25 17:56] LABS: HEMATOCRIT 23.9 % (36-54); HEMOGLOBIN 7.9 g/dL (14.0-18.0)
[2024-06-25] MEDS: ATROPINE SULFATE 1 MG/10 ML SYRINGE IVP ONE (23:00)
[2024-06-25] MEDS: oxyCODONE HCL 5 MG TABLET PO PRN (23:29)
[2024-06-26] VITALS (36 sets, daily range): BP systolic 98–149; PULSE 36–86; RESP 22–30; TEMP 89.7–97.8; O2SAT 95–100
[2024-06-26 05:41] LABS: ERYTHROCYTE SEDIMENTATION RATE 50 MM/HR (0-15)
[2024-06-26 05:46] LABS: BASOPHILS % (AUTO) 0.2 % (0.0-2.0); EOSINOPHILS # (AUTO) 0.3 K/uL (0.0-0.4); EOSINOPHILS % (AUTO) 2.9 % (0.0-4.0); HEMATOCRIT 23.6 % (36-54); HEMOGLOBIN 7.6 g/dL (14.0-18.0); LYMPHOCYTES # (AUTO) 2.1 K/uL (1.0-5.5); LYMPHOCYTES % (AUTO) 17.6 % (20.5-51.5); MEAN CORPUSCULAR HEMOGLOBIN 27 pg (27-31); MEAN CORPUSCULAR HGB CONC 32 % (32-36); MEAN CORPUSCULAR VOLUME 83 fL (79.0-98.0); MONOCYTES # (AUTO) 0.5 K/uL (0.0-1.0); MONOCYTES % (AUTO) 3.9 % (1.7-9.3); NEUTROPHILS # (AUTO) 8.9 K/uL (1.8-7.7); NEUTROPHILS % (AUTO) 75.4 % (40.0-70.0); PLATELET COUNT (AUTO) 155 K/uL (130-430); RED BLOOD CELL COUNT(AUTO) 2.83 MIL/uL (4.2-6.2); WHITE BLOOD COUNT (AUTO) 11.9 K/uL (4.8-10.8)
[2024-06-26 06:41] LABS: CALCIUM 8.4 mg/dL (8.4-11.0); CREATININE 2.06 mg/dL (0.55-1.30); PHOSPHORUS 3.2 mg/dL (2.7-4.5); POTASSIUM 3.9 mmol/L (3.5-5.1)
[2024-06-26] MEDS: BUMEX 1 MG/4 ML VIAL IVP ONE (16:58)
[2024-06-26] MEDS: CEFIDEROCOL SULFATE TOSYLATE 0.75 GM in NS 100 ML IV SCH (21:05)
[2024-06-27] VITALS (35 sets, daily range): BP systolic 102–144; PULSE 36–111; RESP 22–38; TEMP 94.5–99.8; O2SAT 93–100
[2024-06-27 05:26] LABS: ERYTHROCYTE SEDIMENTATION RATE 43 MM/HR (0-15)
[2024-06-27 05:31] LABS: BASOPHILS % (AUTO) 0.4 % (0.0-2.0); EOSINOPHILS # (AUTO) 0.3 K/uL (0.0-0.4); EOSINOPHILS % (AUTO) 2.8 % (0.0-4.0); HEMATOCRIT 23.1 % (36-54); HEMOGLOBIN 7.5 g/dL (14.0-18.0); LYMPHOCYTES # (AUTO) 1.7 K/uL (1.0-5.5); LYMPHOCYTES % (AUTO) 16.3 % (20.5-51.5); MEAN CORPUSCULAR HEMOGLOBIN 27 pg (27-31); MEAN CORPUSCULAR HGB CONC 33 % (32-36); MEAN CORPUSCULAR VOLUME 82 fL (79.0-98.0); MONOCYTES # (AUTO) 0.3 K/uL (0.0-1.0); MONOCYTES % (AUTO) 2.4 % (1.7-9.3); NEUTROPHILS % (AUTO) 78.1 % (40.0-70.0); PLATELET COUNT (AUTO) 156 K/uL (130-430); RED BLOOD CELL COUNT(AUTO) 2.83 MIL/uL (4.2-6.2); RED CELL DISTRIBUTION WIDTH 17.2 % (9.0-15.0); WHITE BLOOD COUNT (AUTO) 10.3 K/uL (4.8-10.8)
[2024-06-27 06:08] LABS: ALBUMIN 1.5 g/dL (3.4-4.8); CALCIUM 8.5 mg/dL (8.4-11.0); CREATININE 2.11 mg/dL (0.55-1.30); PHOSPHORUS 3.4 mg/dL (2.7-4.5); POTASSIUM 3.9 mmol/L (3.5-5.1); TOTAL BILIRUBIN 0.4 mg/dL (0.0-1.0); TOTAL PROTEIN, SERUM 5.6 g/dL (6.4-8.3)
[2024-06-27 06:12] LABS: VANCOMYCIN,TROUGH 47.9 ug/mL (10.0-20.0)
[2024-06-27] MEDS: NOREPINEPHRINE BITARTRATE 8 MG in D5W 242 ML IV PRN (07:46)
[2024-06-27] MEDS: NOREPINEPHRINE 4 MG/4 ML VIAL IV ONE (08:10)
[2024-06-27] MEDS: LORazepam 2 MG/ML VIAL IVP PRN (15:54)
[2024-06-28] VITALS (34 sets, daily range): BP systolic 86–133; PULSE 43–108; RESP 16–39; TEMP 98.6–103.2; O2SAT 95–99
[2024-06-28 06:24] LABS: BASOPHILS # (AUTO) 0.1 K/uL (0.0-0.2); BASOPHILS % (AUTO) 0.5 % (0.0-2.0); EOSINOPHILS # (AUTO) 0.1 K/uL (0.0-0.4); EOSINOPHILS % (AUTO) 0.5 % (0.0-4.0); HEMOGLOBIN 8.4 g/dL (14.0-18.0); LYMPHOCYTES # (AUTO) 3.7 K/uL (1.0-5.5); LYMPHOCYTES % (AUTO) 14.3 % (20.5-51.5); MEAN CORPUSCULAR HEMOGLOBIN 26 pg (27-31); MEAN CORPUSCULAR HGB CONC 31 % (32-36); MEAN CORPUSCULAR VOLUME 84 fL (79.0-98.0); MONOCYTES # (AUTO) 1.1 K/uL (0.0-1.0); MONOCYTES % (AUTO) 4.1 % (1.7-9.3); NEUTROPHILS % (AUTO) 80.6 % (40.0-70.0); PLATELET COUNT (AUTO) 217 K/uL (130-430); RED BLOOD CELL COUNT(AUTO) 3.21 MIL/uL (4.2-6.2); RED CELL DISTRIBUTION WIDTH 17.8 % (9.0-15.0)
[2024-06-28 06:54] LABS: CALCIUM 8.5 mg/dL (8.4-11.0); CREATININE 2.5 mg/dL (0.55-1.30); PHOSPHORUS 3.8 mg/dL (2.7-4.5); POTASSIUM 4.7 mmol/L (3.5-5.1)
[2024-06-28 07:34] LABS: ERYTHROCYTE SEDIMENTATION RATE 91 MM/HR (0-15)
[2024-06-28 08:26] LABS: ABG O2 SAT% ESTIMATE 95.3 % (94.0-98.0); BLOOD GAS PO2 91.1 mmHg (83.0-108.0)
[2024-06-28 08:35] LABS: BLOOD GAS PH 7.198 (7.350-7.450)
[2024-06-28 08:36] LABS: ALLEN'S TEST POSITIVE (P); BLOOD GAS BASE EXCESS -15.2 mmol/L (-2.0-3.0); BLOOD GAS HCO3 11.6 mmol/L (21.0-28.0); BLOOD GAS PCO2 30.4 mmHg (35.0-48.0)
[2024-06-28] MEDS: ACETAMINOPHEN 325 MG TABLET PO PRN (11:52)
[2024-06-28] MEDS ORDERED: SODIUM BICARBONATE 8.4% JECT 50 MEQ in 0.45% NACL 1,000 ML IVP SCH (12:30)
[2024-06-28] MEDS: SODIUM BICARBONATE 8.4% VIAL 50 MEQ/50 ML VIAL IV ONE (13:01)
[2024-06-29] VITALS (36 sets, daily range): BP systolic 73–123; PULSE 56–67; RESP 14–30; TEMP 96.8–99; O2SAT 96–100
[2024-06-29 06:29] LABS: BASOPHILS # (AUTO) 0.1 K/uL (0.0-0.2); BASOPHILS % (AUTO) 0.4 % (0.0-2.0); EOSINOPHILS # (AUTO) 0.1 K/uL (0.0-0.4); EOSINOPHILS % (AUTO) 0.7 % (0.0-4.0); HEMOGLOBIN 7.4 g/dL (14.0-18.0); LYMPHOCYTES # (AUTO) 3.7 K/uL (1.0-5.5); LYMPHOCYTES % (AUTO) 21.4 % (20.5-51.5); MEAN CORPUSCULAR HEMOGLOBIN 27 pg (27-31); MEAN CORPUSCULAR HGB CONC 32 % (32-36); MEAN CORPUSCULAR VOLUME 83 fL (79.0-98.0); MONOCYTES # (AUTO) 0.8 K/uL (0.0-1.0); MONOCYTES % (AUTO) 4.5 % (1.7-9.3); NEUTROPHILS # (AUTO) 12.7 K/uL (1.8-7.7); PLATELET COUNT (AUTO) 130 K/uL (130-430); RED BLOOD CELL COUNT(AUTO) 2.78 MIL/uL (4.2-6.2); RED CELL DISTRIBUTION WIDTH 17.4 % (9.0-15.0); WHITE BLOOD COUNT (AUTO) 17.4 K/uL (4.8-10.8)
[2024-06-29 06:46] LABS: CALCIUM 8.3 mg/dL (8.4-11.0); CREATININE 2.8 mg/dL (0.55-1.30); PHOSPHORUS 4.2 mg/dL (2.7-4.5); POTASSIUM 4.6 mmol/L (3.5-5.1)
[2024-06-29 07:59] LABS: ERYTHROCYTE SEDIMENTATION RATE 49 MM/HR (0-15)
[2024-06-30] VITALS (38 sets, daily range): BP systolic 88–147; PULSE 58–72; RESP 20–33; TEMP 97.4–98.6; O2SAT 93–99
[2024-06-30 05:53] LABS: BASOPHILS % (AUTO) 0.3 % (0.0-2.0); EOSINOPHILS # (AUTO) 0.5 K/uL (0.0-0.4); EOSINOPHILS % (AUTO) 3.2 % (0.0-4.0); HEMOGLOBIN 7.1 g/dL (14.0-18.0); LYMPHOCYTES # (AUTO) 3.4 K/uL (1.0-5.5); LYMPHOCYTES % (AUTO) 22.4 % (20.5-51.5); MEAN CORPUSCULAR HEMOGLOBIN 26 pg (27-31); MEAN CORPUSCULAR HGB CONC 32 % (32-36); MEAN CORPUSCULAR VOLUME 81 fL (79.0-98.0); MONOCYTES # (AUTO) 0.9 K/uL (0.0-1.0); NEUTROPHILS # (AUTO) 10.3 K/uL (1.8-7.7); NEUTROPHILS % (AUTO) 68.1 % (40.0-70.0); PLATELET COUNT (AUTO) 134 K/uL (130-430); RED CELL DISTRIBUTION WIDTH 17.5 % (9.0-15.0); WHITE BLOOD COUNT (AUTO) 15.2 K/uL (4.8-10.8)
[2024-06-30 05:55] LABS: ERYTHROCYTE SEDIMENTATION RATE 57 MM/HR (0-15)
[2024-06-30 06:09] LABS: ALBUMIN 1.4 g/dL (3.4-4.8); CALCIUM 8.2 mg/dL (8.4-11.0); CREATININE 2.33 mg/dL (0.55-1.30); PHOSPHORUS 3.2 mg/dL (2.7-4.5); POTASSIUM 4.2 mmol/L (3.5-5.1); TOTAL BILIRUBIN 0.6 mg/dL (0.0-1.0); TOTAL PROTEIN, SERUM 6.3 g/dL (6.4-8.3)
[2024-06-30 06:32] LABS: VANCOMYCIN,RANDOM 36.6 ug/mL (20.0-30.0)
[2024-06-30] MEDS: EPOETIN ALFA-EPBX 4,000 UNITS/ML VIAL SUBCUT SCH (18:46)
[2024-07-01] VITALS (38 sets, daily range): BP systolic 90–142; PULSE 57–92; RESP 12–33; TEMP 97.2–98.3; O2SAT 7–99
[2024-07-01 06:25] LABS: ERYTHROCYTE SEDIMENTATION RATE 50 MM/HR (0-15)
[2024-07-01 06:34] LABS: BASOPHILS % (AUTO) 0.2 % (0.0-2.0); EOSINOPHILS # (AUTO) 0.5 K/uL (0.0-0.4); EOSINOPHILS % (AUTO) 3.8 % (0.0-4.0); HEMATOCRIT 23.4 % (36-54); HEMOGLOBIN 7.7 g/dL (14.0-18.0); LYMPHOCYTES # (AUTO) 2.6 K/uL (1.0-5.5); LYMPHOCYTES % (AUTO) 18.1 % (20.5-51.5); MEAN CORPUSCULAR HEMOGLOBIN 26 pg (27-31); MEAN CORPUSCULAR HGB CONC 33 % (32-36); MEAN CORPUSCULAR VOLUME 80 fL (79.0-98.0); MONOCYTES # (AUTO) 0.9 K/uL (0.0-1.0); MONOCYTES % (AUTO) 5.9 % (1.7-9.3); NEUTROPHILS # (AUTO) 10.4 K/uL (1.8-7.7); PLATELET COUNT (AUTO) 113 K/uL (130-430); RED BLOOD CELL COUNT(AUTO) 2.94 MIL/uL (4.2-6.2); RED CELL DISTRIBUTION WIDTH 17.5 % (9.0-15.0); WHITE BLOOD COUNT (AUTO) 14.4 K/uL (4.8-10.8)
[2024-07-01 06:46] LABS: CREATININE 1.64 mg/dL (0.55-1.30); PHOSPHORUS 1.9 mg/dL (2.7-4.5); POTASSIUM 3.9 mmol/L (3.5-5.1)
[2024-07-01] MEDS: HEPARIN SODIUM,PORCINE 5,000 UNITS/ML VIAL MC ONE ×2 (08:18→08:21)
[2024-07-01] MEDS: NA PHOS 30 MM in NS 250 ML IV ONE (12:56)
[2024-07-02] VITALS (36 sets, daily range): BP systolic 92–144; PULSE 52–92; RESP 16–35; TEMP 97.6–98.8; O2SAT 94–100
[2024-07-02 06:55] LABS: BASOPHILS % (AUTO) 0.4 % (0.0-2.0); EOSINOPHILS # (AUTO) 0.2 K/uL (0.0-0.4); LYMPHOCYTES # (AUTO) 2.7 K/uL (1.0-5.5); LYMPHOCYTES % (AUTO) 21.6 % (20.5-51.5); MEAN CORPUSCULAR HEMOGLOBIN 26 pg (27-31); MEAN CORPUSCULAR HGB CONC 33 % (32-36); MEAN CORPUSCULAR VOLUME 80 fL (79.0-98.0); MONOCYTES # (AUTO) 0.6 K/uL (0.0-1.0); MONOCYTES % (AUTO) 4.6 % (1.7-9.3); NEUTROPHILS % (AUTO) 71.4 % (40.0-70.0); PLATELET COUNT (AUTO) 108 K/uL (130-430); RED BLOOD CELL COUNT(AUTO) 2.67 MIL/uL (4.2-6.2); RED CELL DISTRIBUTION WIDTH 17.8 % (9.0-15.0); WHITE BLOOD COUNT (AUTO) 12.6 K/uL (4.8-10.8)
[2024-07-02 07:23] LABS: ALBUMIN 1.5 g/dL (3.4-4.8); CALCIUM 7.9 mg/dL (8.4-11.0); CREATININE 1.9 mg/dL (0.55-1.30); PHOSPHORUS 3.8 mg/dL (2.7-4.5); POTASSIUM 4.1 mmol/L (3.5-5.1); TOTAL BILIRUBIN 0.5 mg/dL (0.0-1.0); TOTAL PROTEIN, SERUM 6.1 g/dL (6.4-8.3)
[2024-07-02 07:47] LABS: HEMATOCRIT 21.3 % (36-54)
[2024-07-02 08:13] LABS: ERYTHROCYTE SEDIMENTATION RATE 60 MM/HR (0-15)
[2024-07-02] MEDS: HEPARIN SODIUM, PORCINE 10,000 UNITS/ 10 ML VIAL MC ONE (15:04)
[2024-07-02] MEDS ORDERED: NALOXONE HCL 0.4 MG/ML AMP (NARCAN) IVP PRN (21:15)
[2024-07-02] MEDS: MORPHINE 2 MG/ML INJ. SYRINGE IVP PRN (23:18)
[2024-07-03] VITALS (32 sets, daily range): BP systolic 104–140; PULSE 53–66; RESP 20–28; TEMP 96.7–98.2; O2SAT 94–99
[2024-07-03 05:29] LABS: ERYTHROCYTE SEDIMENTATION RATE 57 MM/HR (0-15)
[2024-07-03 05:40] LABS: BASOPHILS % (AUTO) 0.2 % (0.0-2.0); EOSINOPHILS # (AUTO) 0.4 K/uL (0.0-0.4); EOSINOPHILS % (AUTO) 3.3 % (0.0-4.0); LYMPHOCYTES # (AUTO) 2.4 K/uL (1.0-5.5); LYMPHOCYTES % (AUTO) 17.9 % (20.5-51.5); MEAN CORPUSCULAR HEMOGLOBIN 26 pg (27-31); MEAN CORPUSCULAR HGB CONC 33 % (32-36); MEAN CORPUSCULAR VOLUME 81 fL (79.0-98.0); MONOCYTES # (AUTO) 0.6 K/uL (0.0-1.0); MONOCYTES % (AUTO) 4.6 % (1.7-9.3); NEUTROPHILS # (AUTO) 10.1 K/uL (1.8-7.7); PLATELET COUNT (AUTO) 106 K/uL (130-430); RED BLOOD CELL COUNT(AUTO) 2.68 MIL/uL (4.2-6.2); RED CELL DISTRIBUTION WIDTH 17.6 % (9.0-15.0); WHITE BLOOD COUNT (AUTO) 13.6 K/uL (4.8-10.8)
[2024-07-03 05:45] LABS: HEMATOCRIT 21.7 % (36-54)
[2024-07-03 06:14] LABS: CALCIUM 8.3 mg/dL (8.4-11.0); CREATININE 1.71 mg/dL (0.55-1.30); PHOSPHORUS 3.3 mg/dL (2.7-4.5); POTASSIUM 3.7 mmol/L (3.5-5.1)
[2024-07-03 11:25] LABS: VANCOMYCIN,RANDOM 25.5 ug/mL (20.0-30.0)
[2024-07-03] MEDS: BUMEX 1 MG/4 ML VIAL IVP ONE (15:54)
[2024-07-03] MEDS: CALCIUM GLUCONATE 2 GM in NS 100 ML IV ONE (15:58)
[2024-07-04] VITALS (18 sets, daily range): BP systolic 105–129; PULSE 52–97; RESP 18–22; TEMP 97–97.6; O2SAT 93–98
[2024-07-04 06:58] LABS: BASOPHILS % (AUTO) 0.2 % (0.0-2.0); EOSINOPHILS # (AUTO) 0.6 K/uL (0.0-0.4); EOSINOPHILS % (AUTO) 3.5 % (0.0-4.0); HEMATOCRIT 22.2 % (36-54); HEMOGLOBIN 7.1 g/dL (14.0-18.0); LYMPHOCYTES # (AUTO) 1.7 K/uL (1.0-5.5); LYMPHOCYTES % (AUTO) 10.7 % (20.5-51.5); MEAN CORPUSCULAR HEMOGLOBIN 26 pg (27-31); MEAN CORPUSCULAR HGB CONC 32 % (32-36); MEAN CORPUSCULAR VOLUME 82 fL (79.0-98.0); MONOCYTES # (AUTO) 0.7 K/uL (0.0-1.0); MONOCYTES % (AUTO) 4.5 % (1.7-9.3); NEUTROPHILS # (AUTO) 13.1 K/uL (1.8-7.7); NEUTROPHILS % (AUTO) 81.1 % (40.0-70.0); PLATELET COUNT (AUTO) 129 K/uL (130-430); RED BLOOD CELL COUNT(AUTO) 2.69 MIL/uL (4.2-6.2); WHITE BLOOD COUNT (AUTO) 16.2 K/uL (4.8-10.8)
[2024-07-04 07:06] LABS: INR 1.1 (0.80-1.20); PROTHROMBIN TIME 11.1 SECS (9.5-12.5)
[2024-07-04 07:14] LABS: ERYTHROCYTE SEDIMENTATION RATE 68 MM/HR (0-15)
[2024-07-04 07:28] LABS: ALBUMIN 1.5 g/dL (3.4-4.8); CALCIUM 8.2 mg/dL (8.4-11.0); CREATININE 1.85 mg/dL (0.55-1.30); PHOSPHORUS 3.9 mg/dL (2.7-4.5); TOTAL BILIRUBIN 0.4 mg/dL (0.0-1.0); TOTAL PROTEIN, SERUM 6.2 g/dL (6.4-8.3)
[2024-07-05] VITALS (23 sets, daily range): BP systolic 84–128; PULSE 46–104; RESP 16–27; TEMP 97.1–97.6; O2SAT 79–96
[2024-07-05] MEDS: ALBUMIN HUMAN 25% 50 ML IV SCH (10:42)
[2024-07-05] MEDS: HYDROCORTISONE SOD SUCC 100 MG/2 ML VIAL ONE (17:48)
[2024-07-05] MEDS: NOREPINEPHRINE BITARTRATE 4 MG in NS 246 ML IV PRN (17:50)
[2024-07-05] MEDS: NOREPINEPHRINE 4 MG/4 ML VIAL IV ONE (17:50)
[2024-07-05] MEDS: HYDROCORTISONE SOD SUCC 100 MG/2 ML VIAL IVP ONE (18:21)
[2024-07-05 18:29] LABS: BLOOD GAS PCO2 62.7 mmHg (35.0-48.0); BLOOD GAS PH 7.122 (7.350-7.450); BLOOD GAS PO2 80.1 mmHg (83.0-108.0)
[2024-07-05 18:30] LABS: ABG O2 SAT% ESTIMATE 91.3 % (94.0-98.0); ALLEN'S TEST POSITIVE (P); BLOOD GAS BASE EXCESS -9.1 mmol/L (-2.0-3.0)
[2024-07-05] MEDS: ALBUMIN HUMAN 25% 100 ML IV ONE (19:30)
[2024-07-05] MEDS: HYDROCORTISONE SOD SUCC 100 MG/2 ML VIAL IVP SCH (23:28)
[2024-07-05] MEDS: NACL 0.9% 1,000 ML IV SCH (23:56)
[2024-07-06] VITALS (36 sets, daily range): BP systolic 86–173; PULSE 83–121; RESP 20–37; TEMP 97.1–102; O2SAT 36–100
[2024-07-06] MEDS: NOREPINEPHRINE 4 MG/4 ML VIAL IV ONE (05:38)
[2024-07-06 06:47] LABS: HEMATOCRIT 24.7 % (36-54); HEMOGLOBIN 7.6 g/dL (14.0-18.0); MEAN CORPUSCULAR HEMOGLOBIN 26 pg (27-31); MEAN CORPUSCULAR HGB CONC 31 % (32-36); MEAN CORPUSCULAR VOLUME 85 fL (79.0-98.0); PLATELET COUNT (AUTO) 326 K/uL (130-430); RED BLOOD CELL COUNT(AUTO) 2.89 MIL/uL (4.2-6.2); RED CELL DISTRIBUTION WIDTH 18.9 % (9.0-15.0)
[2024-07-06 06:49] LABS: CALCIUM 8.6 mg/dL (8.4-11.0); CREATININE 2.33 mg/dL (0.55-1.30); PHOSPHORUS 5.7 mg/dL (2.7-4.5); POTASSIUM 5.1 mmol/L (3.5-5.1)
[2024-07-06 07:51] LABS: ERYTHROCYTE SEDIMENTATION RATE 72 MM/HR (0-15)
[2024-07-06 08:36] LABS: BLOOD GAS BASE EXCESS -14.5 mmol/L (-2.0-3.0); BLOOD GAS HCO3 14.4 mmol/L (21.0-28.0); BLOOD GAS PO2 64.4 mmHg (83.0-108.0)
[2024-07-06 08:59] LABS: BLOOD GAS PH 7.103 (7.350-7.450)
[2024-07-06 09:00] LABS: ABG O2 SAT% ESTIMATE 84.2 % (94.0-98.0); ALLEN'S TEST POSITIVE (P)
[2024-07-06] MEDS: CHOLECALCIFEROL (VITAMIN D-3) 400 UNIT TABLET ONE (09:41)
[2024-07-06] MEDS: MIDAZOLAM IN NACL,ISO-OSMOT/PF 100 ML IV PRN (09:53)
[2024-07-06 10:16] LABS: BAND % (MANUAL) 11 % (0-6); BASOPHILS % (MANUAL) 0 % (0-2); EOSINOPHILS % (MANUAL) 0 % (0-7); LYMPHOCYTES % (MANUAL) 2 % (20-46); MONOCYTES % (MANUAL) 2 % (0-11); WBC MORPHOLOGY TOXIC VACUOLATION
[2024-07-06 10:17] LABS: ANISOCYTOSIS 1+; HYPOCHROMASIA 1+; OVALOCYTES FEW; PLATELET ESTIMATE ADEQUATE (ADEQUATE); TEAR DROP CELLS RARE
[2024-07-06] MEDS: SODIUM BICARBONATE 8.4% JECT 50 MEQ/50 ML SYRINGE IVP ONE (10:44)
[2024-07-06] MEDS: MEROPENEM 500 MG in NS 50 ML IV SCH (10:47)
[2024-07-06] MEDS: FENTANYL CITRATE-0.9 % NACL/PF 100 ML IV PRN (11:47)
[2024-07-06] MEDS ORDERED: NOREPINEPHRINE BITARTRATE 32 MG in NS 218 ML IV PRN (12:00)
[2024-07-06] MEDS: SODIUM BICARBONATE 8.4% JECT 100 MEQ in D5W 1,000 ML IV SCH (12:06)
[2024-07-06] MEDS ORDERED: HEPARIN SODIUM, PORCINE 10,000 UNITS/ 10 ML VIAL MC ONE (21:00)
[2024-07-06] MEDS: HEPARIN SODIUM, PORCINE 10,000 UNITS/ 10 ML VIAL MC ONE (22:51)
[2024-07-06] MEDS: HEPARIN SODIUM,PORCINE 5,000 UNITS/ML VIAL ONE (22:53)
[2024-07-06] MEDS: LINEZOLID 300 ML IV SCH (23:15)
[2024-07-07] VITALS (37 sets, daily range): BP systolic 102–159; PULSE 66–93; RESP 25–41; TEMP 98.2–98.8; O2SAT 88–98
[2024-07-07 06:36] LABS: LYMPHOCYTES # (AUTO) 0.9 K/uL (1.0-5.5); LYMPHOCYTES % (AUTO) 5.4 % (20.5-51.5); MEAN CORPUSCULAR HEMOGLOBIN 27 pg (27-31); MEAN CORPUSCULAR HGB CONC 33 % (32-36); MEAN CORPUSCULAR VOLUME 82 fL (79.0-98.0); MONOCYTES # (AUTO) 0.6 K/uL (0.0-1.0); MONOCYTES % (AUTO) 3.8 % (1.7-9.3); NEUTROPHILS # (AUTO) 15.4 K/uL (1.8-7.7); NEUTROPHILS % (AUTO) 90.8 % (40.0-70.0); PLATELET COUNT (AUTO) 279 K/uL (130-430); RED CELL DISTRIBUTION WIDTH 18.8 % (9.0-15.0); WHITE BLOOD COUNT (AUTO) 16.9 K/uL (4.8-10.8)
[2024-07-07 07:49] LABS: HEMATOCRIT 21.3 % (36-54)
[2024-07-07 07:54] LABS: ERYTHROCYTE SEDIMENTATION RATE 71 MM/HR (0-15)
[2024-07-07 09:24] LABS: POTASSIUM 3.9 mmol/L (3.5-5.1)
[2024-07-07 09:25] LABS: CALCIUM 8.1 mg/dL (8.4-11.0); CREATININE 2.04 mg/dL (0.55-1.30); TOTAL BILIRUBIN 0.4 mg/dL (0.0-1.0)
[2024-07-07 09:26] LABS: ALBUMIN 1.7 g/dL (3.4-4.8); TOTAL PROTEIN, SERUM 6.4 g/dL (6.4-8.3)
[2024-07-07] MEDS: metroNIDAZOLE 500 mg/NS 100 ML IV SCH (09:45)
[2024-07-07 10:21] LABS: BLOOD GAS PCO2 37.2 mmHg (35.0-48.0); BLOOD GAS PH 7.391 (7.350-7.450)
[2024-07-07 10:22] LABS: ABG O2 SAT% ESTIMATE 91.8 % (94.0-98.0); ALLEN'S TEST POSITIVE (P); BLOOD GAS BASE EXCESS -2.4 mmol/L (-2.0-3.0); BLOOD GAS HCO3 22.1 mmol/L (21.0-28.0); BLOOD GAS PO2 62.3 mmHg (83.0-108.0)
[2024-07-07] MEDS: CALCIUM GLUC 2 GM/100ML-NACL 100 ML IV ONE (13:30)
[2024-07-08] VITALS (34 sets, daily range): BP systolic 88–125; PULSE 58–74; RESP 25–32; TEMP 97.8–98.5; O2SAT 90–99
[2024-07-08 06:48] LABS: BASOPHILS % (AUTO) 0.1 % (0.0-2.0); HEMATOCRIT 22.7 % (36-54); HEMOGLOBIN 7.3 g/dL (14.0-18.0); LYMPHOCYTES # (AUTO) 1.7 K/uL (1.0-5.5); LYMPHOCYTES % (AUTO) 9.6 % (20.5-51.5); MEAN CORPUSCULAR HEMOGLOBIN 26 pg (27-31); MEAN CORPUSCULAR HGB CONC 32 % (32-36); MEAN CORPUSCULAR VOLUME 82 fL (79.0-98.0); MONOCYTES % (AUTO) 5.5 % (1.7-9.3); NEUTROPHILS # (AUTO) 15.5 K/uL (1.8-7.7); NEUTROPHILS % (AUTO) 84.8 % (40.0-70.0); PLATELET COUNT (AUTO) 254 K/uL (130-430); RED BLOOD CELL COUNT(AUTO) 2.76 MIL/uL (4.2-6.2); RED CELL DISTRIBUTION WIDTH 18.6 % (9.0-15.0); WHITE BLOOD COUNT (AUTO) 18.3 K/uL (4.8-10.8)
[2024-07-08 07:38] LABS: ALBUMIN 1.7 g/dL (3.4-4.8); CALCIUM 8.5 mg/dL (8.4-11.0); CREATININE 2.23 mg/dL (0.55-1.30); PHOSPHORUS 4.1 mg/dL (2.7-4.5); POTASSIUM 3.9 mmol/L (3.5-5.1); TOTAL BILIRUBIN 0.5 mg/dL (0.0-1.0); TOTAL PROTEIN, SERUM 6.5 g/dL (6.4-8.3)
[2024-07-08 07:47] LABS: ERYTHROCYTE SEDIMENTATION RATE 82 MM/HR (0-15)
[2024-07-08] MEDS ORDERED: ALBUMIN HUMAN 25% 200 ML IV ONE ×2 (09:15→09:30)
[2024-07-08] MEDS: ALBUMIN HUMAN 25% 200 ML IV ONE (10:32)
[2024-07-08] MEDS: HEPARIN SODIUM,PORCINE 5,000 UNITS/ML VIAL ONE (11:39)
[2024-07-08] MEDS: D5/0.45 NS 1,000 ML IV SCH (20:34)
[2024-07-09] VITALS (36 sets, daily range): BP systolic 94–139; PULSE 54–86; RESP 28–42; TEMP 97.3–98.7; O2SAT 89–97
[2024-07-09 06:46] LABS: BASOPHILS % (AUTO) 0.1 % (0.0-2.0); HEMATOCRIT 23.8 % (36-54); HEMOGLOBIN 7.7 g/dL (14.0-18.0); LYMPHOCYTES # (AUTO) 1.4 K/uL (1.0-5.5); MEAN CORPUSCULAR HEMOGLOBIN 27 pg (27-31); MEAN CORPUSCULAR HGB CONC 32 % (32-36); MEAN CORPUSCULAR VOLUME 82 fL (79.0-98.0); MONOCYTES # (AUTO) 0.5 K/uL (0.0-1.0); NEUTROPHILS % (AUTO) 84.9 % (40.0-70.0); PLATELET COUNT (AUTO) 292 K/uL (130-430); RED CELL DISTRIBUTION WIDTH 18.3 % (9.0-15.0)
[2024-07-09 07:05] LABS: ALBUMIN 2.2 g/dL (3.4-4.8); CALCIUM 8.6 mg/dL (8.4-11.0); CREATININE 1.87 mg/dL (0.55-1.30); PHOSPHORUS 3.8 mg/dL (2.7-4.5); POTASSIUM 4.2 mmol/L (3.5-5.1); TOTAL BILIRUBIN 0.7 mg/dL (0.0-1.0); TOTAL PROTEIN, SERUM 6.9 g/dL (6.4-8.3)
[2024-07-09] MEDS: ALBUMIN HUMAN 25% 200 ML IV ONE (08:54)
[2024-07-09] MEDS: HEPARIN SODIUM,PORCINE 5,000 UNITS/ML VIAL MC ONE (11:04)
[2024-07-09] MEDS ORDERED: MIDAZOLAM IN NACL,ISO-OSMOT/PF 100 ML IV PRN (18:00)
[2024-07-09 21:44] LABS: ERYTHROCYTE SEDIMENTATION RATE 65 MM/HR (0-15)
[2024-07-10] VITALS (38 sets, daily range): BP systolic 103–159; PULSE 60–80; RESP 9–48; TEMP 97.1–98.8; O2SAT 85–100
[2024-07-10 06:58] LABS: BASOPHILS % (AUTO) 0.1 % (0.0-2.0); HEMATOCRIT 23.7 % (36-54); HEMOGLOBIN 7.6 g/dL (14.0-18.0); LYMPHOCYTES # (AUTO) 1.1 K/uL (1.0-5.5); LYMPHOCYTES % (AUTO) 7.8 % (20.5-51.5); MEAN CORPUSCULAR HEMOGLOBIN 26 pg (27-31); MEAN CORPUSCULAR HGB CONC 32 % (32-36); MEAN CORPUSCULAR VOLUME 82 fL (79.0-98.0); MONOCYTES # (AUTO) 0.5 K/uL (0.0-1.0); MONOCYTES % (AUTO) 3.5 % (1.7-9.3); NEUTROPHILS # (AUTO) 12.3 K/uL (1.8-7.7); NEUTROPHILS % (AUTO) 88.6 % (40.0-70.0); PLATELET COUNT (AUTO) 295 K/uL (130-430); RED BLOOD CELL COUNT(AUTO) 2.89 MIL/uL (4.2-6.2); RED CELL DISTRIBUTION WIDTH 18.5 % (9.0-15.0); WHITE BLOOD COUNT (AUTO) 13.8 K/uL (4.8-10.8)
[2024-07-10 07:15] LABS: CALCIUM 8.4 mg/dL (8.4-11.0); CREATININE 1.97 mg/dL (0.55-1.30); PHOSPHORUS 3.4 mg/dL (2.7-4.5); POTASSIUM 3.8 mmol/L (3.5-5.1)
[2024-07-10 07:39] LABS: ERYTHROCYTE SEDIMENTATION RATE 49 MM/HR (0-15)
[2024-07-10] MEDS: HEPARIN SODIUM,PORCINE 5,000 UNITS/ML VIAL MC ONE (18:54)
[2024-07-11] VITALS (36 sets, daily range): BP systolic 60–153; PULSE 56–70; RESP 25–33; TEMP 97.6–98.1; O2SAT 91–99
[2024-07-11 06:45] LABS: BASOPHILS % (AUTO) 0.1 % (0.0-2.0); HEMATOCRIT 25.1 % (36-54); HEMOGLOBIN 8.1 g/dL (14.0-18.0); LYMPHOCYTES # (AUTO) 1.2 K/uL (1.0-5.5); LYMPHOCYTES % (AUTO) 8.4 % (20.5-51.5); MEAN CORPUSCULAR HEMOGLOBIN 27 pg (27-31); MEAN CORPUSCULAR HGB CONC 32 % (32-36); MEAN CORPUSCULAR VOLUME 83 fL (79.0-98.0); MONOCYTES # (AUTO) 0.4 K/uL (0.0-1.0); MONOCYTES % (AUTO) 2.6 % (1.7-9.3); NEUTROPHILS # (AUTO) 12.2 K/uL (1.8-7.7); NEUTROPHILS % (AUTO) 88.9 % (40.0-70.0); PLATELET COUNT (AUTO) 281 K/uL (130-430); RED BLOOD CELL COUNT(AUTO) 3.04 MIL/uL (4.2-6.2); RED CELL DISTRIBUTION WIDTH 18.5 % (9.0-15.0); WHITE BLOOD COUNT (AUTO) 13.7 K/uL (4.8-10.8)
[2024-07-11 06:53] LABS: ALBUMIN 2.2 g/dL (3.4-4.8); CALCIUM 8.7 mg/dL (8.4-11.0); CREATININE 2.37 mg/dL (0.55-1.30); ERYTHROCYTE SEDIMENTATION RATE 51 MM/HR (0-15); PHOSPHORUS 3.3 mg/dL (2.7-4.5); POTASSIUM 3.7 mmol/L (3.5-5.1); TOTAL BILIRUBIN 0.8 mg/dL (0.0-1.0); TOTAL PROTEIN, SERUM 6.8 g/dL (6.4-8.3)
[2024-07-11] MEDS: 0.45% NS 1,000 ML IV SCH (11:15)
[2024-07-11] MEDS: MIDODRINE HCL 5 MG TABLET (PROAMATINE) PO ONE (13:00)
[2024-07-11] MEDS ORDERED: VABORBACTAM IV SCH (18:00)
[2024-07-11] MEDS ORDERED: MEROPENEM IV SCH (18:00)
[2024-07-11] MEDS: [UNRECOGNIZED DRUG - OTHER] IV SCH (19:20)
[2024-07-11] MEDS: NS IV SCH (19:20)
[2024-07-11] MEDS: TOBRAMYCIN 300MG/5ML INH AMPUL.NEB INH SCH (19:42)
[2024-07-11] MEDS: MIDODRINE HCL 5 MG TABLET (PROAMATINE) PO SCH (21:19)
[2024-07-12] VITALS (33 sets, daily range): BP systolic 101–145; PULSE 52–96; RESP 18–31; TEMP 97.8–98.4; O2SAT 94–99
[2024-07-12 07:12] LABS: BASOPHILS % (AUTO) 0.1 % (0.0-2.0); EOSINOPHILS % (AUTO) 0.1 % (0.0-4.0); HEMATOCRIT 25.6 % (36-54); HEMOGLOBIN 8.1 g/dL (14.0-18.0); LYMPHOCYTES # (AUTO) 1.3 K/uL (1.0-5.5); LYMPHOCYTES % (AUTO) 10.2 % (20.5-51.5); MEAN CORPUSCULAR HEMOGLOBIN 26 pg (27-31); MEAN CORPUSCULAR HGB CONC 32 % (32-36); MEAN CORPUSCULAR VOLUME 83 fL (79.0-98.0); MONOCYTES # (AUTO) 0.3 K/uL (0.0-1.0); MONOCYTES % (AUTO) 2.3 % (1.7-9.3); NEUTROPHILS # (AUTO) 10.7 K/uL (1.8-7.7); NEUTROPHILS % (AUTO) 87.3 % (40.0-70.0); PLATELET COUNT (AUTO) 236 K/uL (130-430); RED BLOOD CELL COUNT(AUTO) 3.08 MIL/uL (4.2-6.2); RED CELL DISTRIBUTION WIDTH 18.7 % (9.0-15.0); WHITE BLOOD COUNT (AUTO) 12.2 K/uL (4.8-10.8)
[2024-07-12 07:26] LABS: ERYTHROCYTE SEDIMENTATION RATE 44 MM/HR (0-15)
[2024-07-12 07:29] LABS: CALCIUM 8.4 mg/dL (8.4-11.0); CREATININE 1.83 mg/dL (0.55-1.30); PHOSPHORUS 1.9 mg/dL (2.7-4.5); POTASSIUM 3.8 mmol/L (3.5-5.1)
[2024-07-12] MEDS: NA PHOS 15 MM in NS 250 ML IV ONE (11:23)
[2024-07-12] MEDS ORDERED: DEXMEDETOMIDINE HCL 400 MCG in NS 96 ML IV PRN (13:00)
[2024-07-13] VITALS (38 sets, daily range): BP systolic 92–164; PULSE 48–73; RESP 16–35; TEMP 96.2–98.2; O2SAT 93–100
[2024-07-13 06:46] LABS: HEMATOCRIT 27.4 % (36-54); HEMOGLOBIN 8.8 g/dL (14.0-18.0); LYMPHOCYTES # (AUTO) 1.2 K/uL (1.0-5.5); LYMPHOCYTES % (AUTO) 11.7 % (20.5-51.5); MEAN CORPUSCULAR HEMOGLOBIN 27 pg (27-31); MEAN CORPUSCULAR HGB CONC 32 % (32-36); MEAN CORPUSCULAR VOLUME 84 fL (79.0-98.0); MONOCYTES # (AUTO) 0.2 K/uL (0.0-1.0); MONOCYTES % (AUTO) 2.3 % (1.7-9.3); NEUTROPHILS # (AUTO) 8.5 K/uL (1.8-7.7); PLATELET COUNT (AUTO) 227 K/uL (130-430); RED BLOOD CELL COUNT(AUTO) 3.26 MIL/uL (4.2-6.2); RED CELL DISTRIBUTION WIDTH 18.8 % (9.0-15.0); WHITE BLOOD COUNT (AUTO) 9.9 K/uL (4.8-10.8)
[2024-07-13 07:47] LABS: ERYTHROCYTE SEDIMENTATION RATE 38 MM/HR (0-15)
[2024-07-13 07:55] LABS: CALCIUM 8.5 mg/dL (8.4-11.0); CREATININE 2.05 mg/dL (0.55-1.30); PHOSPHORUS 3.5 mg/dL (2.7-4.5); POTASSIUM 3.7 mmol/L (3.5-5.1)
[2024-07-13 08:51] LABS: ABG O2 SAT% ESTIMATE 94.1 % (94.0-98.0); BLOOD GAS BASE EXCESS -1.5 mmol/L (-2.0-3.0); BLOOD GAS HCO3 23.5 mmol/L (21.0-28.0); BLOOD GAS PCO2 40.5 mmHg (35.0-48.0); BLOOD GAS PH 7.381 (7.350-7.450)
[2024-07-13 09:07] LABS: ALLEN'S TEST POSITIVE (P)
[2024-07-13] MEDS ORDERED: NALOXONE HCL 0.4 MG/ML AMP (NARCAN) IVP PRN ×2 (23:45)
[2024-07-13] MEDS ORDERED: HYDROcodone/ACETAMIN 5-325 MG TAB (NORCO/ VICODIN) PO PRN (23:45)
[2024-07-13] MEDS: HYDROcodone/ACETAMIN 10-325 MG TAB PO PRN (23:53)
[2024-07-14] VITALS (33 sets, daily range): BP systolic 94–176; PULSE 57–97; RESP 24–30; TEMP 97.2–98.6; O2SAT 92–100
[2024-07-14 05:29] LABS: ERYTHROCYTE SEDIMENTATION RATE 36 MM/HR (0-15)
[2024-07-14 05:32] LABS: BASOPHILS % (AUTO) 0.5 % (0.0-2.0); EOSINOPHILS % (AUTO) 0.2 % (0.0-4.0); HEMATOCRIT 29.1 % (36-54); HEMOGLOBIN 9.4 g/dL (14.0-18.0); LYMPHOCYTES # (AUTO) 1.6 K/uL (1.0-5.5); LYMPHOCYTES % (AUTO) 15.3 % (20.5-51.5); MEAN CORPUSCULAR HEMOGLOBIN 27 pg (27-31); MEAN CORPUSCULAR HGB CONC 32 % (32-36); MEAN CORPUSCULAR VOLUME 84 fL (79.0-98.0); MONOCYTES # (AUTO) 0.6 K/uL (0.0-1.0); MONOCYTES % (AUTO) 5.7 % (1.7-9.3); NEUTROPHILS # (AUTO) 8.1 K/uL (1.8-7.7); NEUTROPHILS % (AUTO) 78.3 % (40.0-70.0); PLATELET COUNT (AUTO) 243 K/uL (130-430); RED BLOOD CELL COUNT(AUTO) 3.46 MIL/uL (4.2-6.2); WHITE BLOOD COUNT (AUTO) 10.3 K/uL (4.8-10.8)
[2024-07-14 05:59] LABS: ALBUMIN 1.8 g/dL (3.4-4.8); CALCIUM 8.3 mg/dL (8.4-11.0); CREATININE 1.81 mg/dL (0.55-1.30); PHOSPHORUS 2.3 mg/dL (2.7-4.5); TOTAL BILIRUBIN 0.4 mg/dL (0.0-1.0)
[2024-07-14] MEDS ORDERED: CALCIUM GLUC 2 GM/100ML-NACL 100 ML IV SCH (12:00)
[2024-07-14] MEDS: NA PHOS 15 MM in NS 250 ML IV ONE (13:18)
[2024-07-15] VITALS (35 sets, daily range): BP systolic 99–155; PULSE 55–71; RESP 23–46; TEMP 97.5–98.6; O2SAT 95–99
[2024-07-15 06:08] LABS: ERYTHROCYTE SEDIMENTATION RATE 36 MM/HR (0-15)
[2024-07-15 06:11] LABS: BASOPHILS % (AUTO) 0.1 % (0.0-2.0); EOSINOPHILS % (AUTO) 0.1 % (0.0-4.0); HEMATOCRIT 26.8 % (36-54); HEMOGLOBIN 8.5 g/dL (14.0-18.0); LYMPHOCYTES # (AUTO) 1.6 K/uL (1.0-5.5); LYMPHOCYTES % (AUTO) 14.4 % (20.5-51.5); MEAN CORPUSCULAR HEMOGLOBIN 27 pg (27-31); MEAN CORPUSCULAR HGB CONC 32 % (32-36); MEAN CORPUSCULAR VOLUME 85 fL (79.0-98.0); MONOCYTES # (AUTO) 0.5 K/uL (0.0-1.0); NEUTROPHILS # (AUTO) 8.7 K/uL (1.8-7.7); NEUTROPHILS % (AUTO) 80.4 % (40.0-70.0); PLATELET COUNT (AUTO) 193 K/uL (130-430); RED BLOOD CELL COUNT(AUTO) 3.17 MIL/uL (4.2-6.2); RED CELL DISTRIBUTION WIDTH 19.7 % (9.0-15.0); WHITE BLOOD COUNT (AUTO) 10.8 K/uL (4.8-10.8)
[2024-07-15 06:33] LABS: CALCIUM 8.6 mg/dL (8.4-11.0); CREATININE 1.91 mg/dL (0.55-1.30); PHOSPHORUS 3.2 mg/dL (2.7-4.5); POTASSIUM 3.7 mmol/L (3.5-5.1)
[2024-07-15] MEDS ORDERED: LORazepam 2 MG/ML VIAL IVP PRN (16:00)
[2024-07-16] VITALS (38 sets, daily range): BP systolic 87–173; PULSE 47–63; RESP 22–37; TEMP 96.4–100; O2SAT 94–100
[2024-07-16 07:33] LABS: BASOPHILS # (AUTO) 0.1 K/uL (0.0-0.2); BASOPHILS % (AUTO) 0.5 % (0.0-2.0); EOSINOPHILS % (AUTO) 0.1 % (0.0-4.0); HEMATOCRIT 27.5 % (36-54); HEMOGLOBIN 8.6 g/dL (14.0-18.0); LYMPHOCYTES # (AUTO) 1.5 K/uL (1.0-5.5); LYMPHOCYTES % (AUTO) 10.9 % (20.5-51.5); MEAN CORPUSCULAR HEMOGLOBIN 27 pg (27-31); MEAN CORPUSCULAR HGB CONC 31 % (32-36); MEAN CORPUSCULAR VOLUME 86 fL (79.0-98.0); MONOCYTES # (AUTO) 0.4 K/uL (0.0-1.0); MONOCYTES % (AUTO) 3.2 % (1.7-9.3); NEUTROPHILS # (AUTO) 11.8 K/uL (1.8-7.7); NEUTROPHILS % (AUTO) 85.3 % (40.0-70.0); PLATELET COUNT (AUTO) 199 K/uL (130-430); RED BLOOD CELL COUNT(AUTO) 3.21 MIL/uL (4.2-6.2); RED CELL DISTRIBUTION WIDTH 19.8 % (9.0-15.0); WHITE BLOOD COUNT (AUTO) 13.8 K/uL (4.8-10.8)
[2024-07-16 07:46] LABS: ERYTHROCYTE SEDIMENTATION RATE 31 MM/HR (0-15)
[2024-07-16 08:25] LABS: ALBUMIN 1.7 g/dL (3.4-4.8); CALCIUM 8.5 mg/dL (8.4-11.0); CREATININE 1.54 mg/dL (0.55-1.30); PHOSPHORUS 2.5 mg/dL (2.7-4.5); TOTAL BILIRUBIN 0.4 mg/dL (0.0-1.0); TOTAL PROTEIN, SERUM 6.1 g/dL (6.4-8.3)
[2024-07-16] MEDS: NA PHOS 15 MM in NS 250 ML IV ONE (12:44)
[2024-07-17] VITALS (32 sets, daily range): BP systolic 108–164; PULSE 54–74; RESP 25–45; TEMP 96–100.4; O2SAT 90–99
[2024-07-17 06:26] LABS: ERYTHROCYTE SEDIMENTATION RATE 47 MM/HR (0-15)
[2024-07-17 06:33] LABS: EOSINOPHILS % (AUTO) 0.2 % (0.0-4.0); HEMATOCRIT 28.2 % (36-54); HEMOGLOBIN 8.9 g/dL (14.0-18.0); LYMPHOCYTES # (AUTO) 2.3 K/uL (1.0-5.5); LYMPHOCYTES % (AUTO) 15.5 % (20.5-51.5); MEAN CORPUSCULAR HEMOGLOBIN 27 pg (27-31); MEAN CORPUSCULAR HGB CONC 32 % (32-36); MEAN CORPUSCULAR VOLUME 85 fL (79.0-98.0); MONOCYTES # (AUTO) 0.5 K/uL (0.0-1.0); MONOCYTES % (AUTO) 3.7 % (1.7-9.3); NEUTROPHILS # (AUTO) 11.8 K/uL (1.8-7.7); NEUTROPHILS % (AUTO) 80.6 % (40.0-70.0); PLATELET COUNT (AUTO) 214 K/uL (130-430); RED BLOOD CELL COUNT(AUTO) 3.32 MIL/uL (4.2-6.2); WHITE BLOOD COUNT (AUTO) 14.7 K/uL (4.8-10.8)
[2024-07-17 07:13] LABS: CALCIUM 8.4 mg/dL (8.4-11.0); CREATININE 1.26 mg/dL (0.55-1.30); PHOSPHORUS 3.3 mg/dL (2.7-4.5); POTASSIUM 3.6 mmol/L (3.5-5.1)
[2024-07-18] MEDS ORDERED: TOBRAMYCIN 300MG/5ML INH AMPUL.NEB INH SCH (07:00)
== END 2024-07-18 23:00 | DRG 870 ==
LOC: SED 07:06 → STU 09:10 → SIC 06-22 16:09 → STU 07-03 23:14 → SIC 07-05 15:14 → UNDODISIN 07-17 23:00
PROVIDERS: ADMIT Preventive Medicine Preventive Medicine/Occupational Environmental Medicine; ATTEND Preventive Medicine Preventive Medicine/Occupational Environmental Medicine
PROC: 5A1955Z Respiratory Ventilation, Greater than 96 Consecutive Hours (ICD-10-PCS; principal; 2024-06-22)
PROC: 02HV33Z Insertion of Infusion Device into Superior Vena Cava, Percutaneous Approach (ICD-10-PCS; 2024-06-25)
PROC: B548ZZA Ultrasonography of Superior Vena Cava, Guidance (ICD-10-PCS; 2024-06-25)
PROC: 30233N1 Transfusion of Nonautologous Red Blood Cells into Peripheral Vein, Percutaneous Approach (ICD-10-PCS; 2024-06-25)
PROC: 5A1D70Z Performance of Urinary Filtration, Intermittent, Less than 6 Hours Per Day (ICD-10-PCS; 2024-06-29)
PROC: 5A1D70Z Performance of Urinary Filtration, Intermittent, Less than 6 Hours Per Day (ICD-10-PCS; 2024-06-30)
PROC: 5A1D70Z Performance of Urinary Filtration, Intermittent, Less than 6 Hours Per Day (ICD-10-PCS; 2024-07-01)
PROC: 5A1D70Z Performance of Urinary Filtration, Intermittent, Less than 6 Hours Per Day (ICD-10-PCS; 2024-07-05)
PROC: 02HV33Z Insertion of Infusion Device into Superior Vena Cava, Percutaneous Approach (ICD-10-PCS; 2024-07-06)
PROC: B548ZZA Ultrasonography of Superior Vena Cava, Guidance (ICD-10-PCS; 2024-07-06)
PROC: 5A1D70Z Performance of Urinary Filtration, Intermittent, Less than 6 Hours Per Day (ICD-10-PCS; 2024-07-06)
PROC: 5A1D70Z Performance of Urinary Filtration, Intermittent, Less than 6 Hours Per Day (ICD-10-PCS; 2024-07-09)
PROC: 5A1D70Z Performance of Urinary Filtration, Intermittent, Less than 6 Hours Per Day (ICD-10-PCS; 2024-07-10)
PROC: 5A1D70Z Performance of Urinary Filtration, Intermittent, Less than 6 Hours Per Day (ICD-10-PCS; 2024-07-11)
PROC: 5A1D70Z Performance of Urinary Filtration, Intermittent, Less than 6 Hours Per Day (ICD-10-PCS; 2024-07-13)
PROC: 5A1D70Z Performance of Urinary Filtration, Intermittent, Less than 6 Hours Per Day (ICD-10-PCS; 2024-07-15)
PROC: 5A1D70Z Performance of Urinary Filtration, Intermittent, Less than 6 Hours Per Day (ICD-10-PCS; 2024-07-16)
PROC: 0DH63UZ Insertion of Feeding Device into Stomach, Percutaneous Approach (ICD-10-PCS; 2024-07-17)
DX: A41.9 Sepsis, unspecified organism (principal); E43 Unspecified severe protein-calorie malnutrition; I46.9 Cardiac arrest, cause unspecified; G82.50 Quadriplegia, unspecified; J69.0 Pneumonitis due to inhalation of food and vomit; R65.21 Severe sepsis with septic shock; J96.21 Acute and chronic respiratory failure with hypoxia; N18.6 End stage renal disease; N17.0 Acute kidney failure with tubular necrosis; J15.1 Pneumonia due to Pseudomonas; I13.2 Hypertensive heart and chronic kidney disease with heart failure and with stage 5 chronic kidney disease, or end stage renal disease; G93.1 Anoxic brain damage, not elsewhere classified; E87.1 Hypo-osmolality and hyponatremia; I50.32 Chronic diastolic (congestive) heart failure; N39.0 Urinary tract infection, site not specified; Z99.11 Dependence on respirator [ventilator] status; N31.9 Neuromuscular dysfunction of bladder, unspecified; E83.52 Hypercalcemia; E78.5 Hyperlipidemia, unspecified; R74.01 Elevation of levels of liver transaminase levels; R73.9 Hyperglycemia, unspecified; T36.8X5A Adverse effect of other systemic antibiotics, initial encounter; D63.8 Anemia in other chronic diseases classified elsewhere; E88.09 Other disorders of plasma-protein metabolism, not elsewhere classified; R53.81 Other malaise; N40.0 Benign prostatic hyperplasia without lower urinary tract symptoms; E83.41 Hypermagnesemia; Z79.899 Other long term (current) drug therapy; Z93.0 Tracheostomy status; Z79.4 Long term (current) use of insulin; Z79.1 Long term (current) use of non-steroidal anti-inflammatories (NSAID); Z68.29 Body mass index [BMI] 29.0-29.9, adult; Y92.89 Other specified places as the place of occurrence of the external cause; Z79.01 Long term (current) use of anticoagulants; Z93.3 Colostomy status; Z87.441 Personal history of nephrotic syndrome
CPT/HCPCS: 36415; 36600; 70450-TC; 71045; 71250-TC; 74018; 76770; 80048; 80053; 80076; 80202; 81000; 81001; 81015; 82435; 82570; 82803; 82948; 83605; 83735; 83880; 84100; 84302; 84484; 85007; 85018; 85025; 85027; 85610; 85651; 85730; 86886; 86900; 86901; 86920; 87040; 87070; 87081; 87086; 87186; 87205; 90935; 90937; 92610-GN; 93005; 93971; 94002; 94003; 94070; 94640; 94664; 94760; 99291; A4409; A6209; G0378; J0461; J0612; J0699; J1265; J1450; J1644; J1720; J1815; J2020; J2060; J2185; J2270; J2405; J2543; J3010; J3260; J3370; J3490; J7030; J7040; J7050; J7060; J8597; P9021; P9041; P9046; Q5106